=== PATIENT | male | born 1975 | race African-American/Black ===

== ENCOUNTER 2019-10-20 16:27 | Emergency (ER) | payer OTHER ==
[~2019-10-20] VITALS: Ht 175.3 cm; Wt 86.2 kg
[2019-10-20 19:08] LABS: Basophils # (auto) 0 uL; Basophils % (auto) 0.2 % (0.0-2.0); Eosinophils # (auto) 0 uL; Eosinophils % (auto) 0.1 % (0.0-7.0); Hematocrit 48.7 % (41.0-53.0); Hemoglobin 16.5 g/dL (13.5-17.5); Lymphocytes # (auto) 3.1 uL; Lymphocytes % (auto) 27.5 % (10.0-50.0); Mean Corpuscular Hemoglobin 30.6 pg (28.0-32.0); Mean Corpuscular Hgb Conc. 33.9 g/dL (32.0-36.0); Mean Corpuscular Volume 90.2 fL (80.0-100.0); Monocytes # (auto) 0.9 uL; Monocytes % (auto) 7.7 % (0.0-12.0); Neutrophils # (auto) 7.3 uL; Neutrophils % (auto) 64.5 % (37.0-80.0); Nucleated Red Blood Cells % 0.1 %; Platelet Count (auto) 281 10^3/uL (140-450); Red Cell Distribution Width 14.5 % (11.8-14.3); White Blood Cell 11.3 10^3/uL (4.4-10.8)
[2019-10-20 19:27] LABS: Albumin 3.9 g/dL (3.4-5.0); BUN/Creatinine Ratio 20.8; Calcium 9.5 mg/dL (8.5-10.1); Potassium 3.4 mmol/L (3.5-5.1)
[2019-10-20 19:31] LABS: Bilirubin, Total 1.5 mg/dL (0.2-1.0); Total Protein 8.2 g/dL (6.4-8.2)
[2019-10-20] MEDS ORDERED: IOHEXOL 300 MG/ML 100ML BOTTLE IJ ONE (20:13)
[2019-10-20] MEDS ORDERED: KETOROLAC TROMETH 30 MG/ML 1ML VIAL IV ONE (20:45)
[2019-10-20] MEDS ORDERED: ONDANSETRON HCL 4 MG/2 ML VIAL IM ONE (20:45)
[2019-10-20 21:54] VITALS: BP 146/86
[2019-10-20 22:52] LABS: Urine Blood Negative /uL (Negative)
[2019-10-20 22:54] LABS: Urine Bacteria NONE SEEN /hpf (None Seen)
[2019-10-20 22:55] LABS: Urine WBC None seen /hpf (0 - 3)
== END 2019-10-20 23:03 ==
LOC: EDBD 16:27 → ER 16:42 → EEVIPCON 16:42 → ER 23:03
DX: R10.84 Generalized abdominal pain (principal)
CPT/HCPCS: 36415; 74177; 80053; 81001; 82150; 83605; 83690; 85025; 96372; 96374; 99284; J1885; J2405; Q9967

== ENCOUNTER 2019-12-15 15:05 | Inpatient (IN) | payer OTHER ==
[~2019-12-15] VITALS: Ht 167.6 cm; Wt 96.0 kg
[2019-12-15] MEDS ORDERED: SODIUM CHLORIDE 0.9% 1,000 ML IV ONE (15:19)
[2019-12-15] MEDS ORDERED: SODIUM CHLORIDE 0.9% 1,000 ML IVB ONE (15:19)
[2019-12-15] MEDS ORDERED: MORPHINE SULFATE 4 MG/ML SYR/VIAL IV ONE (15:30)
[2019-12-15] MEDS ORDERED: ONDANSETRON HCL 4 MG/2 ML VIAL IV ONE (15:30)
[2019-12-15 16:00] LABS: Basophils # (auto) 0.1 10 ^3/uL (0-0.2); Basophils % (auto) 0.5 % (0.0-2.0); Eosinophils # (auto) 0 10 ^3/uL (0-0.8); Hematocrit 45.6 % (41.0-53.0); Hemoglobin 15.2 g/dL (13.5-17.5); Lymphocytes # (auto) 1.3 10 ^3/uL (0.4-5.4); Lymphocytes % (auto) 10.8 % (10.0-50.0); Mean Corpuscular Hemoglobin 31.2 pg (28.0-32.0); Mean Corpuscular Hgb Conc. 33.4 g/dL (32.0-36.0); Mean Corpuscular Volume 93.3 fL (80.0-100.0); Monocytes # (auto) 0.5 10 ^3/uL (0-1.3); Neutrophils # (auto) 9.9 10 ^3/uL (1.6-8.6); Neutrophils % (auto) 84.7 % (37.0-80.0); Platelet Count (auto) 246 10^3/uL (140-450); Red Blood Cells 4.89 10^6/uL (4.5-5.90); Red Cell Distribution Width 15.5 % (11.8-14.3); White Blood Cell 11.6 10^3/uL (4.4-10.8)
[2019-12-15 16:15] LABS: INR 1.04 (0.9-1.15); Partial Thromboplastin Time 24.9 sec (23.64-32.05)
[2019-12-15 16:17] LABS: Albumin 4.3 g/dL (3.4-5.0); Calcium 9.7 mg/dL (8.5-10.1); Potassium 3.9 mmol/L (3.5-5.1)
[2019-12-15 16:23] LABS: BUN/Creatinine Ratio 8.2; Bilirubin, Total 0.7 mg/dL (0.2-1.0); Total Protein 8.5 g/dL (6.4-8.2)
[2019-12-15 16:29] LABS: Lactic Acid w/Reflex 3.2 mmol/L (0.4-2.0)
[2019-12-15] MEDS ORDERED: PIPERACILLIN-TAZOB 3.375GM 100 ML IV ONE (17:00)
[2019-12-15] MEDS: D5W/SOD CHL 0.45%/KCL 20MEQ 1,000 ML IV SCH (18:30)
[2019-12-15 19:21] LABS: Urine Bacteria NONE SEEN /hpf (None Seen); Urine Blood Negative /uL (Negative); Urine Mucus FEW (None Seen); Urine Specific Gravity 1.034 (1.001-1.035); Urine WBC 2 /hpf (0 - 3)
[2019-12-15] MEDS: MORPHINE SULFATE 4 MG/ML SYR/VIAL IV PRN (20:03)
[2019-12-15 20:30] VITALS: BP 136/93
--- NOTE | 2019-12-15 20:30 | NUR ---
MS admit from [facility] admitted to tele/MS. Patient oriented to Josie Myles, primary RN, unit, room, bed, and unit policies regarding patient care and visiting hours. Patient weighed by bed scale and encouraged to call if they need something. All questions and concerns addressed, patient verbalized understanding.
[2019-12-15 22:00] VITALS: BP 136/93
[2019-12-16] MEDS: D5W/SOD CHL 0.45%/KCL 20MEQ 1,000 ML IV SCH ×4 (02:23→21:12)
[2019-12-16] MEDS: MORPHINE SULFATE 4 MG/ML SYR/VIAL IV PRN ×3 (02:32→21:39)
--- NOTE | 2019-12-16 02:32 | NUR ---
PAIN PATIENT C/O 8/10 PAIN IN THE ABDOMEN. 4MG MORPHINE GIVEN PER ORDERS. WILL CONTINUE TO MONITOR.
[2019-12-16 05:00] VITALS: BP 123/80
--- NOTE | 2019-12-16 07:21 | NUR ---
OPENING SHIFT NOTE Assumed care of patient from retail shift leader RN. Guards at bedside. Cuffs on right wrist and bilateral lower extremities, no circulatory issues or skin breakdown noted. Patient is asleep, no signs of distress noted. Bed is locked, in the lowest position, side rails up x2, and call light is in reach.
--- NOTE | 2019-12-16 08:16 | NUR ---
PAIN Patient complaining of pain "8/10" in abdomen. Pain medication administered as ordered.
[2019-12-16 09:00] VITALS: BP 117/71
--- NOTE | 2019-12-16 09:00 | NUR ---
PAIN REASSESSMENT Patient reports abdominal pain "4/10". Patient refused ice/heat packs, will continue to monitor.
[2019-12-16] MEDS: ENOXAPARIN SOD 40 MG/0.4 ML SYRINGE SC SCH (09:35)
[2019-12-16] MEDS: PANTOPRAZOLE 40 MG/10 ML VIAL INJ IV SCH (09:35)
[2019-12-16 13:00] VITALS: BP 109/69
[2019-12-16] MEDS: HYDROcodone-ACET 10/325MG TAB PO PRN ×2 (14:56→19:48)
--- NOTE | 2019-12-16 14:56 | NUR ---
PAIN Patient complaining of abdominal pain "05/17". No medication available for severe pain, patient offered medication for mild pain, will be given as ordered.
--- NOTE | 2019-12-16 16:00 | NUR ---
PAIN REASSESSMENT Patient pain level is 6/10, stating no relief with medication, patient offered heat pack, will reassess.
[2019-12-16 17:00] VITALS: BP 125/73
--- NOTE | 2019-12-16 17:10 | NUR ---
PAGEBenji PEREZ regarding pain management. Patient stated the [place] did not help his pain, awaiting call back.
--- NOTE | 2019-12-16 17:12 | NUR ---
PAIN Patient complaining of abdominal pain "04/16". no pain medication due, Patient requested another heat pack.
--- NOTE | 2019-12-16 18:31 | NUR ---
CALL FROM ANA updated on patient pain status, no new orders received.
--- NOTE | 2019-12-16 18:58 | NUR ---
Closing shift notes Care endorsed to shift production supervisor RN.
--- NOTE | 2019-12-16 19:05 | NUR ---
Opening Shift Note Assumed care of patient, awake and alert. No S/S of distress/SOB, patient does state 9/10 pain. POC discussed and questions answered. Bed is locked in lowest position with side rails up x2 for safety, call light is within reach and patient encouraged to call for assistance as needed. Will medicate for pain at this time and continue to monitor for changes Q1hr and PRN.
--- NOTE | 2019-12-16 19:40 | NUR ---
PAIN PATIENT COMPLAINS 9/10 PAIN IN THE ABDOMEN. NORCO 10 IS ORDERED, WILL GIVE AT THIS TIME. WILL CONTINUE TO MONITOR.
--- NOTE | 2019-12-16 21:05 | NUR ---
PAIN REASSESSMENT PATIENT STATES 9/10 PAIN IN THE ABDOMEN. HEATING PACK GIVEN. WILL CONTINUE TO MONITOR.
--- NOTE | 2019-12-16 21:16 | NUR ---
PAGE SENT FOR DR PEREZ REGARDING PATIENTS PAIN. PATIENT STATES 9/10 PAIN AND IS SHAKING IN BED. NORCO 10 AND HOT PACKS GIVEN. NEITHER IS HELPING TO ALLEVIATE THE PAIN AT THIS TIME. WILL AWAIT CALL BACK.
--- NOTE | 2019-12-16 21:21 | NUR ---
PAGE RETURNED NEW ORDERS RECEIVED, WILL CARRY OUT ORDERS.
--- NOTE | 2019-12-16 21:40 | NUR ---
PAIN NEW ORDERS FOR MORPHINE 4MG Q4 PRN GIVEN TO PATIENT WITH COMPLAINT OF 9/10 PAIN. WILL CONTINUE TO MONITOR.
--- NOTE | 2019-12-16 22:15 | NUR ---
PAIN REASSESSMENT PATIENT STATES PAIN HAS DECREASED TO 5/10 AND IS MORE COMFORTABLE. WILL CONTINUE TO MONITOR.
[2019-12-17] MEDS: MORPHINE SULFATE 4 MG/ML SYR/VIAL IV PRN ×5 (02:01→21:04)
--- NOTE | 2019-12-17 02:01 | NUR ---
PAIN PATIENT HAS 8/10 PAIN IN ABDOMEN. MORPHINE GIVEN AT THIS TIME. WILL CONTINUE TO MONITOR
--- NOTE | 2019-12-17 02:47 | NUR ---
PAIN REASSESSMENT PATIENT STATES 5/10 PAIN.
[2019-12-17] MEDS: D5W/SOD CHL 0.45%/KCL 20MEQ 1,000 ML IV SCH ×4 (04:24→23:03)
[2019-12-17 05:58] VITALS: BP 137/88
--- NOTE | 2019-12-17 06:13 | NUR ---
PAIN PATIENT STATES 7/10 PAIN. WILL GIVE MORPHINE AND HOT PACK AT THIS TIME.
--- NOTE | 2019-12-17 06:56 | NUR ---
PAIN REASSESSMENT PATIENT STATES PAIN IS STILL AT A 7/10 BUT THE PAIN IS STARTING TO GO DOWN.
[2019-12-17 06:57] LABS: Basophils # (auto) 0 10 ^3/uL (0-0.2); Basophils % (auto) 0.4 % (0.0-2.0); Eosinophils # (auto) 0 10 ^3/uL (0-0.8); Eosinophils % (auto) 0.9 % (0.0-7.0); Hematocrit 38.8 % (41.0-53.0); Lymphocytes # (auto) 2.8 10 ^3/uL (0.4-5.4); Mean Corpuscular Hemoglobin 31.7 pg (28.0-32.0); Mean Corpuscular Hgb Conc. 33.5 g/dL (32.0-36.0); Mean Corpuscular Volume 94.8 fL (80.0-100.0); Monocytes # (auto) 0.3 10 ^3/uL (0-1.3); Monocytes % (auto) 6.2 % (0.0-12.0); Neutrophils # (auto) 2.2 10 ^3/uL (1.6-8.6); Neutrophils % (auto) 40.5 % (37.0-80.0); Nucleated Red Blood Cells % 0.1 %; Platelet Count (auto) 189 10^3/uL (140-450); Red Blood Cells 4.09 10^6/uL (4.5-5.90); Red Cell Distribution Width 14.9 % (11.8-14.3); White Blood Cell 5.5 10^3/uL (4.4-10.8)
[2019-12-17 07:15] LABS: Albumin 3.2 g/dL (3.4-5.0); Calcium 8.6 mg/dL (8.5-10.1); Potassium 4.1 mmol/L (3.5-5.1)
[2019-12-17 07:19] LABS: Bilirubin, Total 0.7 mg/dL (0.2-1.0); Total Protein 6.4 g/dL (6.4-8.2)
--- NOTE | 2019-12-17 08:00 | NUR ---
ASSESSMENT NOTE PT IS ALERT ORIENTED X4, RESTING IN BED COMFORTABLY, NO DISTRESS NOTED, ABLE TO SELF REPOSITION AND VERBALIS HIS DEMANDS, ABDOMEN PAIN 4/10 AT THIS TIME, ON PAIN MANAGEMENT AT ALL TIMES, CALL LIGHT WITHIN REACH PT HAS LEFT HAND WITH A METAL CUFF, CHECKED FOR CIRCULATIONS AT ALL TIMES, GUARDS AT BED SIDE
[2019-12-17 09:00] VITALS: BP 150/73
--- NOTE | 2019-12-17 09:00 | NUR ---
RADIOLOGY GARCIA CALLED, CONFIRM PT IS NPO GOR UPPER GI SERIES
[2019-12-17] MEDS: ENOXAPARIN SOD 40 MG/0.4 ML SYRINGE SC SCH (09:23)
[2019-12-17] MEDS: PANTOPRAZOLE 40 MG/10 ML VIAL INJ IV SCH (09:23)
[2019-12-17] MEDS ORDERED: EZ PAQUE SUSP 12OZ BTL ONE (09:34)
[2019-12-17] MEDS ORDERED: EZ-GAS II GRANULES (RADIOLOGY USE) PO ONE (09:34)
[2019-12-17] MEDS ORDERED: BARIUM SULFATE 98% 340 GM PWDR ONE (09:34)
--- NOTE | 2019-12-17 10:40 | NUR ---
OUT VIA WHEELCHAIR FOR UPPER GI SERIES, GUARDS AT BED SIDE
--- NOTE | 2019-12-17 11:40 | NUR ---
PT IS BACK TO HIS ROOM, NO DISTRESS NOTED, GUARDS AT HIS SIDE
[2019-12-17 13:00] VITALS: BP 135/77
--- NOTE | 2019-12-17 13:41 | NUR ---
DR PEREZ IS HERE FOLLOWING UP ON PT
[2019-12-17] MEDS: ONDANSETRON HCL 4 MG/2 ML VIAL IV PRN (16:15)
[2019-12-17 17:00] VITALS: BP 136/70
--- NOTE | 2019-12-17 18:43 | NUR ---
PT CONTINUE STABLE, CONTINUE MONITORING
--- NOTE | 2019-12-17 19:20 | NUR ---
Opening Shift Note Assumed care of patient, awake and alert. No S/S of distress/SOB. Patient states 8/10 pain.POC discussed and questions answered, bed is locked in lowest position with side rails up x2, call light is within reach and encouraged to call for assistance PRN, will continue to monitor for changes Q1hr and PRN.
[2019-12-17 21:37] VITALS: BP 110/58
[2019-12-18] MEDS: MORPHINE SULFATE 4 MG/ML SYR/VIAL IV PRN ×3 (02:22→11:59)
[2019-12-18] MEDS: ONDANSETRON HCL 4 MG/2 ML VIAL IV PRN ×2 (02:22→06:41)
[2019-12-18 04:36] VITALS: BP 107/59
[2019-12-18] MEDS: D5W/SOD CHL 0.45%/KCL 20MEQ 1,000 ML IV SCH ×2 (06:29→12:55)
[2019-12-18 09:00] VITALS: BP 111/59
--- NOTE | 2019-12-18 09:00 | NUR ---
BREAKFAST PT TOLERATING DIET WELL, NO DISTRESS NOTED
[2019-12-18] MEDS: PANTOPRAZOLE 40 MG/10 ML VIAL INJ IV SCH (09:55)
[2019-12-18] MEDS: ENOXAPARIN SOD 40 MG/0.4 ML SYRINGE SC SCH (09:55)
[2019-12-18 13:00] VITALS: BP 116/60
--- NOTE | 2019-12-18 13:00 | NUR ---
LUNCH PT TOLERATED WELL
[2019-12-18] MEDS ORDERED: OMEP20TA PO (13:45)
--- NOTE | 2019-12-18 15:13 | NUR ---
ALL DISCHARGE INSTRUCTION GIVEN TO PT, VERBALIS UNDERSTANDING, PATIENT'S GUARDS AWARE AT BED SIDE AWARE
--- NOTE | 2019-12-18 16:44 | NUR ---
Discharge instructions given as ordered. Encourage to follow up with PMD as instructed. All questions and concerns addressed. Patient verbalized understanding. Medication reconciliation form completed and copy given to patient.IV removed with catheter intact, pressure dressing applied. Patient ambulated with all personal belongings, accompanied by his guards. No distress noted at time of departure.
== END 2019-12-18 16:55 | DRG 392 ==
LOC: ER 15:05 → EEVIPCON 15:05 → OVERFLOW 15:06 → EAST 20:16
PROVIDERS: ADMIT Internal Medicine; ATTEND Internal Medicine
DX: K52.9 Noninfective gastroenteritis and colitis, unspecified (principal); K21.9 Gastro-esophageal reflux disease without esophagitis
CPT/HCPCS: 36415; 74176; 74245; 76705; 80053; 81001; 82150; 83605; 83690; 84484; 85025; 85610; 85730; 87040; 96361; 96365; 96372; 96375; C9113; G0378; J2405; J2543

== ENCOUNTER 2020-03-01 02:18 | Emergency (ER) | payer OTHER ==
[~2020-03-01] VITALS: Ht 172.7 cm; Wt 90.7 kg
[~2020-03-01 02:18] MED LIST: OMEP20TA PO
[2020-03-01] MEDS ORDERED: ONDANSETRON HCL 4 MG/2 ML VIAL IV ONE (02:45)
[2020-03-01] MEDS ORDERED: MORPHINE SULFATE 4 MG/ML SYR/VIAL IV ONE (02:45)
[2020-03-01] MEDS ORDERED: SODIUM CHLORIDE 0.9% 1,000 ML IV ONE (02:45)
[2020-03-01 02:47] LABS: Basophils # (auto) 0.1 10 ^3/uL (0-0.2); Basophils % (auto) 0.5 % (0.0-2.0); Eosinophils # (auto) 0 10 ^3/uL (0-0.8); Hematocrit 43.4 % (41.0-53.0); Hemoglobin 14.5 g/dL (13.5-17.5); Lymphocytes # (auto) 1.5 10 ^3/uL (0.4-5.4); Lymphocytes % (auto) 12.9 % (10.0-50.0); Mean Corpuscular Hemoglobin 30.8 pg (28.0-32.0); Mean Corpuscular Hgb Conc. 33.4 g/dL (32.0-36.0); Mean Corpuscular Volume 92.2 fL (80.0-100.0); Monocytes # (auto) 0.5 10 ^3/uL (0-1.3); Monocytes % (auto) 4.4 % (0.0-12.0); Neutrophils # (auto) 9.5 10 ^3/uL (1.6-8.6); Neutrophils % (auto) 82.2 % (37.0-80.0); Platelet Count (auto) 297 10^3/uL (140-450); Red Blood Cells 4.71 10^6/uL (4.5-5.90); Red Cell Distribution Width 14.1 % (11.8-14.3); White Blood Cell 11.5 10^3/uL (4.4-10.8)
[2020-03-01 03:02] LABS: Albumin 4.3 g/dL (3.4-5.0); BUN/Creatinine Ratio 13.9; Calcium 9.3 mg/dL (8.5-10.1); Magnesium 2.1 mg/dL (1.6-2.6); Potassium 3.6 mmol/L (3.5-5.1)
[2020-03-01 03:05] LABS: Bilirubin, Total 0.6 mg/dL (0.2-1.0); Total Protein 8.5 g/dL (6.4-8.2)
[2020-03-01 04:08] LABS: Urine Bacteria FEW /hpf (None Seen); Urine Blood Negative /uL (Negative); Urine Mucus FEW (None Seen); Urine Specific Gravity 1.042 (1.001-1.035); Urine Sperm PRESENT /hpf (None Seen); Urine WBC 2 /hpf (0 - 3)
[2020-03-01] MEDS ORDERED: metroNIDAZOLE 500 MG TAB PO ONE (04:30)
[2020-03-01] MEDS ORDERED: HYDROmorphone HCL 2 MG/ML VL IV ONE (04:30)
[2020-03-01 04:55] VITALS: BP 118/65
== END 2020-03-01 02:40 | disposition home or self-care (01) ==
LOC: EDBD 02:18 → EDUNIT# 02:18 → EEVIPCON 02:20 → ER 02:20
DX: K52.9 Noninfective gastroenteritis and colitis, unspecified (principal); K40.20 Bilateral inguinal hernia, without obstruction or gangrene, not specified as recurrent; K44.9 Diaphragmatic hernia without obstruction or gangrene; Z79.899 Other long term (current) drug therapy
CPT/HCPCS: 36415; 74176; 80053; 81001; 82150; 83690; 83735; 85025; 96361; 96374; 96375; 99284; J1170; J2270; J2405; J7030

== ENCOUNTER 2020-03-04 15:17 | Inpatient (IN) | payer OTHER ==
[~2020-03-04] VITALS: Ht 172.7 cm; Wt 98.8 kg
[2020-03-04] MEDS ORDERED: SODIUM CHLORIDE 0.9% 1,000 ML IVB ONE (15:24)
[2020-03-04 16:13] LABS: Albumin 3.9 g/dL (3.4-5.0); BUN/Creatinine Ratio 11.5; Potassium 3.6 mmol/L (3.5-5.1)
[2020-03-04 16:16] LABS: Bilirubin, Total 0.5 mg/dL (0.2-1.0); Total Protein 7.9 g/dL (6.4-8.2)
[2020-03-04 16:22] LABS: Basophils # (auto) 0 10 ^3/uL (0-0.2); Basophils % (auto) 0.3 % (0.0-2.0); Eosinophils # (auto) 0 10 ^3/uL (0-0.8); Eosinophils % (auto) 0.5 % (0.0-7.0); Hematocrit 43.1 % (41.0-53.0); Hemoglobin 14.4 g/dL (13.5-17.5); Lymphocytes # (auto) 3.4 10 ^3/uL (0.4-5.4); Lymphocytes % (auto) 39.9 % (10.0-50.0); Mean Corpuscular Hemoglobin 30.9 pg (28.0-32.0); Mean Corpuscular Hgb Conc. 33.3 g/dL (32.0-36.0); Mean Corpuscular Volume 92.6 fL (80.0-100.0); Monocytes # (auto) 0.5 10 ^3/uL (0-1.3); Monocytes % (auto) 6.1 % (0.0-12.0); Neutrophils # (auto) 4.5 10 ^3/uL (1.6-8.6); Neutrophils % (auto) 53.2 % (37.0-80.0); Nucleated Red Blood Cells % 0.2 %; Platelet Count (auto) 273 10^3/uL (140-450); Red Blood Cells 4.65 10^6/uL (4.5-5.90); Red Cell Distribution Width 13.8 % (11.8-14.3); White Blood Cell 8.5 10^3/uL (4.4-10.8)
[2020-03-04] MEDS ORDERED: MORPHINE SULF INJ 2 MG/ML SYRINGE 1ML IV PRN (16:30)
[2020-03-04] MEDS ORDERED: NITROGLYCERIN 0.4 MG SL TAB SL PRN (16:30)
[2020-03-04] MEDS: D5W/SOD CHL 0.45% 1,000 ML IV SCH ×2 (17:15→23:10)
[2020-03-04] MEDS: HYDROcodone-ACET 10/325MG TAB PO PRN (17:29)
[2020-03-04] MEDS: PIPERACILLIN-TAZOB 3.375GM 100 ML IV SCH (18:15)
[2020-03-04] MEDS: ONDANSETRON HCL 4 MG/2 ML VIAL IV PRN (18:48)
[2020-03-04 19:30] VITALS: BP 130/73
[2020-03-04 22:00] VITALS: BP 130/73
[2020-03-05] MEDS: HYDROcodone-ACET 10/325MG TAB PO PRN (00:43)
[2020-03-05] MEDS: PIPERACILLIN-TAZOB 3.375GM 100 ML IV SCH ×5 (00:43→23:09)
[2020-03-05] MEDS: ONDANSETRON HCL 4 MG/2 ML VIAL IV PRN ×4 (01:00→23:10)
[2020-03-05 05:00] VITALS: BP 136/78
[2020-03-05] MEDS: D5W/SOD CHL 0.45% 1,000 ML IV SCH ×3 (05:50→18:14)
[2020-03-05 09:00] VITALS: BP 139/98
[2020-03-05 13:00] VITALS: BP 138/84
[2020-03-05 17:00] VITALS: BP 149/85
[2020-03-05] MEDS: MORPHINE SULF INJ 2 MG/ML SYRINGE 1ML IV PRN ×2 (18:56→23:10)
[2020-03-05] MEDS: PANTOPRAZOLE 40 MG/10 ML VIAL INJ IV SCH (21:39)
[2020-03-05 22:00] VITALS: BP 125/72
[2020-03-06] MEDS: D5W/SOD CHL 0.45% 1,000 ML IV SCH ×4 (01:50→22:27)
[2020-03-06] MEDS: MORPHINE SULF INJ 2 MG/ML SYRINGE 1ML IV PRN ×3 (03:03→10:30)
[2020-03-06] MEDS: ONDANSETRON HCL 4 MG/2 ML VIAL IV PRN ×5 (03:03→20:47)
[2020-03-06 05:00] VITALS: BP 103/65
[2020-03-06] MEDS: PIPERACILLIN-TAZOB 3.375GM 100 ML IV SCH ×4 (05:47→23:58)
[2020-03-06] MEDS: PANTOPRAZOLE 40 MG/10 ML VIAL INJ IV SCH ×2 (09:50→22:26)
[2020-03-06 13:00] VITALS: BP 113/77
[2020-03-06] MEDS ORDERED: ALUM & MAG HYDROX-SIMETH LIQ(MAALOX) 30 ML PO PRN (14:45)
[2020-03-06] MEDS: HYDROcodone-ACET 10/325MG TAB PO PRN (16:20)
[2020-03-06 17:00] VITALS: BP 105/66
[2020-03-06 21:45] VITALS: BP 129/76
[2020-03-07 04:52] VITALS: BP 115/67
[2020-03-07] MEDS: PIPERACILLIN-TAZOB 3.375GM 100 ML IV SCH ×3 (06:18→17:42)
[2020-03-07 09:00] VITALS: BP 129/70
[2020-03-07] MEDS: ONDANSETRON HCL 4 MG/2 ML VIAL IV PRN ×2 (09:15→21:49)
[2020-03-07] MEDS: PANTOPRAZOLE 40 MG/10 ML VIAL INJ IV SCH ×2 (10:15→21:48)
[2020-03-07] MEDS: D5W/SOD CHL 0.45% 1,000 ML IV SCH ×2 (11:29→17:42)
[2020-03-07 14:30] VITALS: BP 132/80
[2020-03-07 16:28] VITALS: BP 112/69
[2020-03-07] MEDS: HYDROcodone-ACET 10/325MG TAB PO PRN (21:49)
[2020-03-07 21:52] VITALS: BP 121/79
[2020-03-08] MEDS: PIPERACILLIN-TAZOB 3.375GM 100 ML IV SCH ×4 (00:18→17:38)
[2020-03-08] MEDS: D5W/SOD CHL 0.45% 1,000 ML IV SCH ×4 (04:45→20:30)
[2020-03-08 04:52] VITALS: BP 118/73
[2020-03-08 09:00] VITALS: BP 128/80
[2020-03-08] MEDS: PANTOPRAZOLE 40 MG/10 ML VIAL INJ IV SCH ×2 (10:32→22:07)
[2020-03-08] MEDS ORDERED: BARIUM SULFATE 98% 340 GM PWDR ONE ×2 (10:37)
[2020-03-08] MEDS ORDERED: EZ-GAS II GRANULES (RADIOLOGY USE) PO ONE (10:39)
[2020-03-08] MEDS: HYDROcodone-ACET 10/325MG TAB PO PRN (12:31)
[2020-03-08] MEDS: ONDANSETRON HCL 4 MG/2 ML VIAL IV PRN ×3 (12:31→21:24)
[2020-03-08 13:00] VITALS: BP 132/87
[2020-03-08 17:00] VITALS: BP 135/75
[2020-03-08] MEDS: traMADol HCL 50 MG TAB PO PRN ×2 (17:28→21:23)
[2020-03-08 21:53] VITALS: BP 111/55
[2020-03-09] MEDS: D5W/SOD CHL 0.45% 1,000 ML IV SCH ×4 (03:10→22:12)
[2020-03-09 05:00] VITALS: BP 116/77
[2020-03-09] MEDS: PIPERACILLIN-TAZOB 3.375GM 100 ML IV SCH ×5 (06:00→23:50)
[2020-03-09] MEDS: traMADol HCL 50 MG TAB PO PRN ×3 (07:40→22:19)
[2020-03-09] MEDS: ONDANSETRON HCL 4 MG/2 ML VIAL IV PRN ×3 (07:40→22:19)
[2020-03-09 09:00] VITALS: BP 130/72
[2020-03-09] MEDS: PANTOPRAZOLE 40 MG/10 ML VIAL INJ IV SCH ×2 (11:05→22:12)
[2020-03-09 13:00] VITALS: BP 127/82
[2020-03-09 22:00] VITALS: BP 122/68
[2020-03-10 05:00] VITALS: BP 112/54
[2020-03-10] MEDS: D5W/SOD CHL 0.45% 1,000 ML IV SCH ×3 (05:12→19:10)
[2020-03-10] MEDS: PIPERACILLIN-TAZOB 3.375GM 100 ML IV SCH ×3 (06:01→17:22)
[2020-03-10] MEDS ORDERED: IOHEXOL 300 MG/ML 100ML BOTTLE IJ ONE (08:02)
[2020-03-10 08:53] VITALS: BP 122/62
[2020-03-10] MEDS: PANTOPRAZOLE 40 MG/10 ML VIAL INJ IV SCH ×2 (11:12→21:08)
[2020-03-10 13:00] VITALS: BP 113/87
[2020-03-10 16:52] VITALS: BP 131/72
[2020-03-10] MEDS: traMADol HCL 50 MG TAB PO PRN (17:23)
[2020-03-10] MEDS: ONDANSETRON HCL 4 MG/2 ML VIAL IV PRN ×2 (17:27→21:07)
[2020-03-10] MEDS: HYDROcodone-ACET 10/325MG TAB PO PRN (21:07)
[2020-03-10 22:24] VITALS: BP 130/62
[2020-03-11] MEDS: PIPERACILLIN-TAZOB 3.375GM 100 ML IV SCH ×4 (00:04→18:16)
[2020-03-11] MEDS: D5W/SOD CHL 0.45% 1,000 ML IV SCH ×4 (00:04→22:16)
[2020-03-11] MEDS: ONDANSETRON HCL 4 MG/2 ML VIAL IV PRN ×4 (02:58→22:00)
[2020-03-11] MEDS: HYDROcodone-ACET 10/325MG TAB PO PRN ×3 (02:58→22:51)
[2020-03-11 05:10] VITALS: BP 123/79
[2020-03-11 07:08] LABS: Basophils # (auto) 0 10 ^3/uL (0-0.2); Basophils % (auto) 0.4 % (0.0-2.0); Eosinophils # (auto) 0.2 10 ^3/uL (0-0.8); Eosinophils % (auto) 2.5 % (0.0-7.0); Hemoglobin 13.2 g/dL (13.5-17.5); Lymphocytes # (auto) 2.2 10 ^3/uL (0.4-5.4); Lymphocytes % (auto) 35.6 % (10.0-50.0); Mean Corpuscular Hemoglobin 30.6 pg (28.0-32.0); Mean Corpuscular Hgb Conc. 33.1 g/dL (32.0-36.0); Mean Corpuscular Volume 92.6 fL (80.0-100.0); Monocytes # (auto) 0.4 10 ^3/uL (0-1.3); Monocytes % (auto) 6.5 % (0.0-12.0); Neutrophils # (auto) 3.3 10 ^3/uL (1.6-8.6); Platelet Count (auto) 236 10^3/uL (140-450); Red Blood Cells 4.32 10^6/uL (4.5-5.90); Red Cell Distribution Width 13.7 % (11.8-14.3)
[2020-03-11 07:30] LABS: Calcium 8.4 mg/dL (8.5-10.1); Potassium 3.7 mmol/L (3.5-5.1)
[2020-03-11] MEDS: PANTOPRAZOLE 40 MG/10 ML VIAL INJ IV SCH ×2 (09:27→21:59)
[2020-03-11] MEDS: traMADol HCL 50 MG TAB PO PRN (09:28)
[2020-03-11 13:00] VITALS: BP 130/72
[2020-03-11 17:00] VITALS: BP 133/83
[2020-03-11 21:54] VITALS: BP 116/74
[2020-03-12] MEDS: PIPERACILLIN-TAZOB 3.375GM 100 ML IV SCH ×4 (00:25→17:35)
[2020-03-12] MEDS: ONDANSETRON HCL 4 MG/2 ML VIAL IV PRN ×4 (04:40→17:37)
[2020-03-12] MEDS: HYDROcodone-ACET 10/325MG TAB PO PRN ×4 (04:40→17:38)
[2020-03-12 04:56] VITALS: BP 121/73
[2020-03-12] MEDS: D5W/SOD CHL 0.45% 1,000 ML IV SCH ×3 (06:18→17:35)
[2020-03-12] MEDS ORDERED: IOHEXOL 300 MG/ML 100ML BOTTLE IJ ONE (08:50)
[2020-03-12 09:00] VITALS: BP 120/68
[2020-03-12] MEDS: PANTOPRAZOLE 40 MG/10 ML VIAL INJ IV SCH (09:05)
[2020-03-12 13:00] VITALS: BP 121/72
[2020-03-12] MEDS ORDERED: LACTULOSE 20Gm/30ML SOLN PO SCH (16:15)
[2020-03-12 16:39] VITALS: BP 127/76
[2020-03-12] MEDS ORDERED: LACT10SO3 PO (17:02)
== END 2020-03-12 18:37 | DRG 392 ==
LOC: EEVIPCON 15:17 → ER 15:17 → OVERFLOW 15:18 → WEST WING 19:21
PROVIDERS: ADMIT Internal Medicine; ATTEND Internal Medicine
DX: K29.70 Gastritis, unspecified, without bleeding (principal); K59.00 Constipation, unspecified; E86.0 Dehydration
CPT/HCPCS: 36415; 74018; 74177; 74245; 76705; 80048; 80053; 83605; 83690; 85025; 87040; 96361; 96374; C9113; G0378; J2405; J2543

== ENCOUNTER 2020-11-01 10:56 | Inpatient (IN) | payer OTHER ==
[~2020-11-01] VITALS: Ht 167.6 cm; Wt 204.1 kg
[~2020-11-01 10:56] MED LIST changes: +LACT10SO3 PO
[2020-11-01] MEDS ORDERED: SODIUM CHLORIDE 0.9% 500 ML IVB ONE (11:15)
[2020-11-01] MEDS ORDERED: MORPHINE SULFATE 4 MG/ML SYR/VIAL IV ONE ×2 (11:15→14:30)
[2020-11-01] MEDS ORDERED: ONDANSETRON HCL 4 MG/2 ML VIAL IV ONE ×2 (11:15→14:30)
[2020-11-01 12:08] LABS: Basophils # (auto) 0 10 ^3/uL (0-0.2); Basophils % (auto) 0.4 % (0.0-2.0); Eosinophils # (auto) 0 10 ^3/uL (0-0.8); Hematocrit 39.8 % (41.0-53.0); Hemoglobin 13.4 g/dL (13.5-17.5); Lymphocytes # (auto) 0.9 10 ^3/uL (0.4-5.4); Lymphocytes % (auto) 8.6 % (10.0-50.0); Mean Corpuscular Hemoglobin 30.6 pg (28.0-32.0); Mean Corpuscular Hgb Conc. 33.6 g/dL (32.0-36.0); Monocytes # (auto) 0.4 10 ^3/uL (0-1.3); Monocytes % (auto) 4.3 % (0.0-12.0); Neutrophils # (auto) 8.7 10 ^3/uL (1.6-8.6); Neutrophils % (auto) 86.7 % (37.0-80.0); Platelet Count (auto) 234 10^3/uL (140-450); Red Blood Cells 4.37 10^6/uL (4.5-5.90); Red Cell Distribution Width 14.9 % (11.8-14.3)
[2020-11-01 12:28] LABS: Albumin 3.7 g/dL (3.4-5.0); Calcium 9.2 mg/dL (8.5-10.1); Potassium 4.7 mmol/L (3.5-5.1)
[2020-11-01 12:30] LABS: BUN/Creatinine Ratio 11.6; Bilirubin, Total 0.6 mg/dL (0.2-1.0); Total Protein 7.7 g/dL (6.4-8.2)
[2020-11-01 13:57] LABS: Urine Bacteria NONE SEEN /hpf (None Seen); Urine Blood Negative /uL (Negative); Urine Specific Gravity 1.026 (1.001-1.035); Urine WBC <1 /hpf (0 - 3)
[2020-11-01] MEDS ORDERED: D5W/SOD CHL 0.45%/KCL 20MEQ 1,000 ML IV ONE (15:45)
[2020-11-01] MEDS ORDERED: NITROGLYCERIN 0.4 MG SL TAB SL PRN (15:45)
[2020-11-01] MEDS ORDERED: MORPHINE SULF INJ 2 MG/ML SYRINGE 1ML IV PRN (15:45)
[2020-11-01] MEDS ORDERED: PANTOPRAZOLE 40 MG/10 ML VIAL INJ IV ONE (16:00)
[2020-11-01] MEDS: MORPHINE SULFATE 4 MG/ML SYR/VIAL IV PRN ×2 (18:33→23:17)
[2020-11-01] MEDS: ONDANSETRON HCL 4 MG/2 ML VIAL IV PRN (18:34)
[2020-11-01] MEDS: PANTOPRAZOLE 40 MG/10 ML VIAL INJ IV SCH (22:56)
[2020-11-02 04:31] VITALS: BP 131/65
[2020-11-02] MEDS ORDERED: INFLUENZA QUAD 2020-2021 0.5 ML SYRG IM ONE (05:45)
[2020-11-02 08:00] VITALS: BP 118/76
[2020-11-02 09:36] LABS: Basophils # (auto) 0.1 10 ^3/uL (0-0.2); Basophils % (auto) 0.7 % (0.0-2.0); Eosinophils # (auto) 0 10 ^3/uL (0-0.8); Eosinophils % (auto) 0.3 % (0.0-7.0); Hematocrit 41.9 % (41.0-53.0); Hemoglobin 13.7 g/dL (13.5-17.5); Lymphocytes # (auto) 2.7 10 ^3/uL (0.4-5.4); Mean Corpuscular Hemoglobin 29.9 pg (28.0-32.0); Mean Corpuscular Hgb Conc. 32.7 g/dL (32.0-36.0); Mean Corpuscular Volume 91.5 fL (80.0-100.0); Monocytes # (auto) 0.6 10 ^3/uL (0-1.3); Monocytes % (auto) 6.3 % (0.0-12.0); Neutrophils # (auto) 6.2 10 ^3/uL (1.6-8.6); Neutrophils % (auto) 64.7 % (37.0-80.0); Nucleated Red Blood Cells % 0.1 %; Platelet Count (auto) 281 10^3/uL (140-450); Red Blood Cells 4.58 10^6/uL (4.5-5.90); Red Cell Distribution Width 14.9 % (11.8-14.3); White Blood Cell 9.5 10^3/uL (4.4-10.8)
[2020-11-02 09:43] LABS: Albumin 3.4 g/dL (3.4-5.0)
[2020-11-02 09:49] LABS: BUN/Creatinine Ratio 9.9; Bilirubin, Total 0.8 mg/dL (0.2-1.0); Total Protein 6.9 g/dL (6.4-8.2)
[2020-11-02] MEDS: PANTOPRAZOLE 40 MG/10 ML VIAL INJ IV SCH ×2 (10:09→22:27)
[2020-11-02] MEDS: MORPHINE SULFATE 4 MG/ML SYR/VIAL IV PRN (10:10)
[2020-11-02] MEDS ORDERED: OMEP-434 PO (11:40)
[2020-11-02] MEDS ORDERED: OME20T PO (11:46)
[2020-11-02] MEDS ORDERED: GOLYTELY 4L KIT PO ONE (12:00)
[2020-11-02] MEDS ORDERED: GASTROGRAFIN 120 ML SOL ONE (12:11)
[2020-11-02] MEDS ORDERED: EZ-GAS II GRANULES (RADIOLOGY USE) PO ONE (12:11)
[2020-11-02] MEDS ORDERED: BARIUM SULFATE 98% 340 GM PWDR ONE (12:12)
[2020-11-02] MEDS ORDERED: READI-CAT 2 (BARIUM SULF)(VANILLA SMOOTHIE) 450ML ONE ×2 (12:13→17:08)
[2020-11-02] MEDS: ONDANSETRON HCL 4 MG/2 ML VIAL IV PRN (18:21)
[2020-11-02] MEDS: HYDROcodone-ACET 10/325MG TAB PO PRN (20:40)
[2020-11-02 22:00] VITALS: BP 114/67
[2020-11-03] MEDS: HYDROcodone-ACET 10/325MG TAB PO PRN ×3 (00:46→20:17)
[2020-11-03 05:00] VITALS: BP 116/70
[2020-11-03 08:00] VITALS: BP 130/52
[2020-11-03 08:39] LABS: Albumin 3.6 g/dL (3.4-5.0); Calcium 9.3 mg/dL (8.5-10.1); Potassium 3.9 mmol/L (3.5-5.1)
[2020-11-03] MEDS: PANTOPRAZOLE 40 MG/10 ML VIAL INJ IV SCH ×2 (10:00→21:39)
[2020-11-03] MEDS: METOCLOPRAMIDE HCL 10 MG TAB PO SCH ×2 (13:37→21:40)
[2020-11-03 16:00] VITALS: BP 130/69
[2020-11-03 22:00] VITALS: BP 134/82
[2020-11-04 05:00] VITALS: BP 133/77
[2020-11-04] MEDS: HYDROcodone-ACET 10/325MG TAB PO PRN ×2 (06:03→10:31)
[2020-11-04] MEDS: METOCLOPRAMIDE HCL 10 MG TAB PO SCH ×2 (06:04→14:06)
[2020-11-04 08:00] VITALS: BP 118/78
[2020-11-04] MEDS: PANTOPRAZOLE 40 MG/10 ML VIAL INJ IV SCH (10:01)
[2020-11-04] MEDS ORDERED: METO-517 PO (13:22)
[2020-11-04] MEDS ORDERED: LACT10SO3 PO (13:22)
[2020-11-04 16:00] VITALS: BP 149/73
== END 2020-11-04 18:00 | DRG 392 ==
LOC: EEVIPCON 10:56 → EDBD 10:56 → ER 10:56 → OVERFLOW 10:57 → WEST WING 11-02 04:31
PROVIDERS: ADMIT Internal Medicine; ATTEND Internal Medicine
DX: K21.9 Gastro-esophageal reflux disease without esophagitis (principal); K59.09 Other constipation; E86.0 Dehydration; Z80.9 Family history of malignant neoplasm, unspecified; Z83.3 Family history of diabetes mellitus; K29.70 Gastritis, unspecified, without bleeding; Z20.822 Contact with and (suspected) exposure to COVID-19
CPT/HCPCS: 36415; 74176; 74245; 76700; 80053; 81001; 82150; 83690; 85025; 87081; 87426; 93005; 96365; 96375; 96376; C9113; G0378; J2405

== ENCOUNTER 2021-04-27 13:53 | Inpatient (IN) | payer OTHER ==
[~2021-04-27] VITALS: Ht 175.3 cm; Wt 84.5 kg
[~2021-04-27 13:53] MED LIST changes: +METO-517 PO; +OME20T PO; -OMEP20TA PO
[2021-04-27 15:18] LABS: Basophils # (auto) 0 10 ^3/uL (0-0.2); Basophils % (auto) 0.1 % (0.0-2.0); Eosinophils # (auto) 0 10 ^3/uL (0-0.8); Eosinophils % (auto) 0.1 % (0.0-7.0); Hematocrit 44.5 % (41.0-53.0); Hemoglobin 15.1 g/dL (13.5-17.5); Lymphocytes # (auto) 1.1 10 ^3/uL (0.4-5.4); Lymphocytes % (auto) 10.6 % (10.0-50.0); Mean Corpuscular Hemoglobin 30.1 pg (28.0-32.0); Mean Corpuscular Hgb Conc. 33.8 g/dL (32.0-36.0); Mean Corpuscular Volume 89.1 fL (80.0-100.0); Monocytes # (auto) 0.3 10 ^3/uL (0-1.3); Monocytes % (auto) 3.5 % (0.0-12.0); Neutrophils # (auto) 8.5 10 ^3/uL (1.6-8.6); Neutrophils % (auto) 85.7 % (37.0-80.0)
[2021-04-27 15:33] LABS: Albumin 4.2 g/dL (3.4-5.0); Calcium 9.1 mg/dL (8.5-10.1); Magnesium 2.3 mg/dL (1.6-2.6); Potassium 3.6 mmol/L (3.5-5.1)
[2021-04-27 15:36] LABS: Total Protein 7.8 g/dL (6.4-8.2)
[2021-04-27] MEDS ORDERED: SODIUM CHLORIDE 0.9% 500 ML IVB ONE (15:45)
[2021-04-27] MEDS ORDERED: SODIUM CHLORIDE 0.9% 1,000 ML IV ONE (15:45)
[2021-04-27] MEDS ORDERED: METOCLOPRAMIDE HCL 5MG/ml INJ 2ml VIAL IV ONE (15:45)
[2021-04-27] MEDS ORDERED: HYDROmorphone HCL 2 MG/ML VL IV ONE (15:45)
[2021-04-27 16:52] LABS: INR 1.04 (0.9-1.15); Partial Thromboplastin Time 20.2 sec (23.0-31.2)
[2021-04-27] MEDS ORDERED: SUCRALFATE 1 GM/10 ML ORAL SUSP PO ONE (17:15)
[2021-04-27] MEDS ORDERED: PANTOPRAZOLE 40 MG/10 ML VIAL INJ IV ONE (17:15)
[2021-04-27] MEDS ORDERED: CEFTRIAXONE SODIUM 2 GM in D5W 5% 50 ML IV ONE (17:45)
[2021-04-27] MEDS ORDERED: D5W/SOD CHL 0.45%/KCL 40MEQ 1,000 ML IV ONE (17:45)
[2021-04-27] MEDS ORDERED: MORPHINE SULF INJ 2 MG/ML SYRINGE 1ML IV PRN (21:30)
[2021-04-27] MEDS ORDERED: NITROGLYCERIN 0.4 MG SL TAB SL PRN (21:30)
[2021-04-27] MEDS: PANTOPRAZOLE 40 MG/10 ML VIAL INJ IV SCH (22:21)
[2021-04-28] MEDS: MORPHINE SULFATE 4 MG/ML SYR/VIAL IV PRN ×5 (00:27→20:36)
[2021-04-28] MEDS: ONDANSETRON HCL 4 MG/2 ML VIAL IV PRN ×5 (00:28→20:37)
[2021-04-28 01:00] VITALS: BP 127/78
[2021-04-28 01:18] LABS: Alcohol, Urine < 3.0 mg/dL (0-10); Amphetamine Screen, Urine NEGATIVE (NEGATIVE); Barbiturate Scree,Urine NEGATIVE (NEGATIVE); Benzodiazephine Screen, Urine NEGATIVE (NEGATIVE); Cannabinoid Screen, Urine NEGATIVE (NEGATIVE); Cocaine Screen, Urine NEGATIVE (NEGATIVE); Opiate Scree,Urine NEGATIVE (NEGATIVE); Phencyclidine Screen, Urine NEGATIVE (NEGATIVE)
[2021-04-28 01:34] LABS: Urine Bacteria FEW /hpf (None Seen); Urine Blood Negative /uL (Negative); Urine Mucus FEW (None Seen); Urine Specific Gravity 1.026 (1.001-1.035); Urine WBC 1 /hpf (0 - 3)
[2021-04-28 05:00] VITALS: BP 127/78
[2021-04-28 05:47] LABS: Basophils # (auto) 0 10 ^3/uL (0-0.2); Basophils % (auto) 0.4 % (0.0-2.0); Eosinophils # (auto) 0 10 ^3/uL (0-0.8); Eosinophils % (auto) 0.2 % (0.0-7.0); Hematocrit 39.4 % (41.0-53.0); Hemoglobin 13.5 g/dL (13.5-17.5); Lymphocytes # (auto) 2.6 10 ^3/uL (0.4-5.4); Lymphocytes % (auto) 31.4 % (10.0-50.0); Mean Corpuscular Hemoglobin 30.6 pg (28.0-32.0); Mean Corpuscular Hgb Conc. 34.3 g/dL (32.0-36.0); Mean Corpuscular Volume 89.2 fL (80.0-100.0); Monocytes # (auto) 0.6 10 ^3/uL (0-1.3); Monocytes % (auto) 7.1 % (0.0-12.0); Neutrophils % (auto) 60.9 % (37.0-80.0); Nucleated Red Blood Cells % 0.1 %; Red Blood Cells 4.42 10^6/uL (4.5-5.90); Red Cell Distribution Width 14.7 % (11.8-14.3); White Blood Cell 8.2 10^3/uL (4.4-10.8)
[2021-04-28 06:17] LABS: Potassium 3.7 mmol/L (3.5-5.1)
[2021-04-28 06:30] LABS: Albumin 3.2 g/dL (3.4-5.0); BUN/Creatinine Ratio 14.9; Bilirubin, Total 0.9 mg/dL (0.2-1.0); Calcium 8.6 mg/dL (8.5-10.1); Total Protein 6.4 g/dL (6.4-8.2)
[2021-04-28] MEDS: PANTOPRAZOLE 40 MG/10 ML VIAL INJ IV SCH ×2 (09:32→09:37)
[2021-04-28] MEDS: ENOXAPARIN SOD 40 MG/0.4 ML SYRINGE SC SCH (09:38)
[2021-04-28 09:51] VITALS: BP 117/82
[2021-04-28 17:09] VITALS: BP 115/69
[2021-04-28 22:00] VITALS: BP 113/67
[2021-04-28] MEDS: PROMETHAZINE HCL 25 MG/ML 1ML IV PRN (22:56)
[2021-04-29] MEDS: MORPHINE SULFATE 4 MG/ML SYR/VIAL IV PRN ×5 (00:23→20:14)
[2021-04-29 05:22] VITALS: BP 153/62
[2021-04-29 06:14] LABS: Basophils # (auto) 0 10 ^3/uL (0-0.2); Basophils % (auto) 0.3 % (0.0-2.0); Eosinophils # (auto) 0 10 ^3/uL (0-0.8); Eosinophils % (auto) 0.5 % (0.0-7.0); Hematocrit 41.3 % (41.0-53.0); Hemoglobin 14.1 g/dL (13.5-17.5); Lymphocytes # (auto) 1.9 10 ^3/uL (0.4-5.4); Lymphocytes % (auto) 25.9 % (10.0-50.0); Mean Corpuscular Hemoglobin 30.8 pg (28.0-32.0); Mean Corpuscular Hgb Conc. 34.1 g/dL (32.0-36.0); Mean Corpuscular Volume 90.4 fL (80.0-100.0); Monocytes # (auto) 0.5 10 ^3/uL (0-1.3); Monocytes % (auto) 6.1 % (0.0-12.0); Neutrophils % (auto) 67.2 % (37.0-80.0); Nucleated Red Blood Cells % 0.1 %; Red Blood Cells 4.57 10^6/uL (4.5-5.90); Red Cell Distribution Width 14.7 % (11.8-14.3); White Blood Cell 7.5 10^3/uL (4.4-10.8)
[2021-04-29 06:25] LABS: Albumin 3.7 g/dL (3.4-5.0); BUN/Creatinine Ratio 12.3; Calcium 8.8 mg/dL (8.5-10.1); Potassium 3.5 mmol/L (3.5-5.1)
[2021-04-29 06:27] LABS: Bilirubin, Total 1.1 mg/dL (0.2-1.0); Total Protein 6.6 g/dL (6.4-8.2)
[2021-04-29] MEDS: PANTOPRAZOLE 40 MG/10 ML VIAL INJ IV SCH ×2 (07:51→22:00)
[2021-04-29] MEDS: ENOXAPARIN SOD 40 MG/0.4 ML SYRINGE SC SCH (07:51)
[2021-04-29] MEDS: PROMETHAZINE HCL 25 MG/ML 1ML IV PRN ×3 (07:52→16:05)
[2021-04-29 09:00] VITALS: BP 135/70
[2021-04-29] MEDS ORDERED: GASTROGRAFIN 120 ML SOL ONE (10:17)
[2021-04-29 13:00] VITALS: BP 127/73
[2021-04-29 16:44] VITALS: BP 138/73
[2021-04-29] MEDS: ONDANSETRON HCL 4 MG/2 ML VIAL IV PRN (20:14)
[2021-04-29 22:05] VITALS: BP 149/73
[2021-04-30] MEDS: ONDANSETRON HCL 4 MG/2 ML VIAL IV PRN ×5 (01:03→19:35)
[2021-04-30] MEDS: MORPHINE SULFATE 4 MG/ML SYR/VIAL IV PRN ×2 (01:04→06:29)
[2021-04-30 05:00] VITALS: BP 123/72
[2021-04-30] MEDS ORDERED: diphenhdrAMINE HCL 50 MG/1 ML VL IV ONE (07:30)
[2021-04-30 09:00] VITALS: BP 137/69
[2021-04-30] MEDS: PANTOPRAZOLE 40 MG/10 ML VIAL INJ IV SCH ×2 (10:37→22:00)
[2021-04-30] MEDS: ENOXAPARIN SOD 40 MG/0.4 ML SYRINGE SC SCH (10:38)
[2021-04-30] MEDS: HYDROmorphone HCL 2 MG/ML VL IV PRN ×4 (10:38→23:55)
[2021-04-30] MEDS ORDERED: OMNIPAQUE ORAL SOLN 500ml 12mg/ml PO ONE (12:33)
[2021-04-30 16:59] VITALS: BP 133/66
[2021-04-30] MEDS: PROMETHAZINE HCL 25 MG/ML 1ML IV PRN (21:24)
[2021-04-30 22:00] VITALS: BP 131/67
[2021-05-01] MEDS: ONDANSETRON HCL 4 MG/2 ML VIAL IV PRN ×5 (04:16→21:34)
[2021-05-01] MEDS: HYDROmorphone HCL 2 MG/ML VL IV PRN ×2 (04:16→08:22)
[2021-05-01 05:00] VITALS: BP 141/89
[2021-05-01] MEDS: PANTOPRAZOLE 40 MG/10 ML VIAL INJ IV SCH (08:21)
[2021-05-01] MEDS: ENOXAPARIN SOD 40 MG/0.4 ML SYRINGE SC SCH (08:22)
[2021-05-01 09:00] VITALS: BP_SYST 125; BP_SYST 152; BP_DIAS 86; BP_DIAS 87
[2021-05-01] MEDS: HYDROcodone-ACET 10/325MG TAB PO PRN ×3 (12:43→21:33)
[2021-05-01 13:00] VITALS: BP 136/110
[2021-05-01 17:00] VITALS: BP 143/86
[2021-05-01] MEDS: PANTOPRAZOLE 40 MG TAB PO SCH (21:33)
[2021-05-01 22:00] VITALS: BP 121/80
[2021-05-02 05:30] VITALS: BP 112/72
[2021-05-02 07:40] VITALS: BP 128/73
[2021-05-02] MEDS: ONDANSETRON HCL 4 MG/2 ML VIAL IV PRN ×2 (08:01→12:26)
[2021-05-02] MEDS: HYDROcodone-ACET 10/325MG TAB PO PRN ×2 (08:01→12:26)
[2021-05-02 09:03] VITALS: BP 128/73
[2021-05-02] MEDS: ENOXAPARIN SOD 40 MG/0.4 ML SYRINGE SC SCH (10:04)
[2021-05-02] MEDS: PANTOPRAZOLE 40 MG TAB PO SCH (10:04)
[2021-05-02] MEDS ORDERED: PANT40T PO (10:54)
[2021-05-02 14:00] VITALS: BP 113/61
[2021-05-02 14:59] VITALS: BP 113/61
== END 2021-05-02 12:35 | DRG 390 ==
LOC: ER 13:53 → EDBD 13:53 → EEVIPCON 13:53 → OVERFLOW 22:00 → WEST WING 04-28 00:51
PROVIDERS: ADMIT Internal Medicine; ATTEND Internal Medicine
DX: K56.1 Intussusception (principal); K80.20 Calculus of gallbladder without cholecystitis without obstruction; F41.9 Anxiety disorder, unspecified; Z20.822 Contact with and (suspected) exposure to COVID-19; K21.9 Gastro-esophageal reflux disease without esophagitis; Z80.9 Family history of malignant neoplasm, unspecified; Z82.3 Family history of stroke; Z83.3 Family history of diabetes mellitus; Z79.899 Other long term (current) drug therapy
CPT/HCPCS: 36415; 71045; 74018; 74176; 74245; 76705; 80053; 80307; 81001; 82150; 83690; 83735; 84443; 85025; 85610; 85730; 86850; 86900; 86901; 87426; 93005; 96361; 96365; 96367; 96375; C9113; G0378; J0696; J2405; J7060

== ENCOUNTER 2021-10-15 15:42 | Emergency (ER) | payer OTHER ==
[~2021-10-15] VITALS: Ht 180.3 cm; Wt 90.7 kg
[~2021-10-15 15:42] MED LIST changes: +PANT40T PO
[2021-10-15] MEDS ORDERED: HYDROmorphone HCL 2 MG/ML VL IM ONE (16:15)
[2021-10-15] MEDS ORDERED: KETOROLAC TROMETH 30 MG/ML 1ML VIAL IV ONE (16:15)
[2021-10-15] MEDS ORDERED: LORazepam 2MG/ML-1ML VIAL IV ONE (16:15)
[2021-10-15] MEDS ORDERED: OMNIPAQUE ORAL SOLN 500ml 12mg/ml PO ONE (16:23)
[2021-10-15 16:42] LABS: Basophils # (auto) 0 10 ^3/uL (0-0.2); Basophils % (auto) 0.4 % (0.0-2.0); Eosinophils # (auto) 0 10 ^3/uL (0-0.8); Eosinophils % (auto) 0.1 % (0.0-7.0); Hematocrit 42.3 % (41.0-53.0); Hemoglobin 13.9 g/dL (13.5-17.5); Lymphocytes # (auto) 1.7 10 ^3/uL (0.4-5.4); Lymphocytes % (auto) 15.1 % (10.0-50.0); Mean Corpuscular Hemoglobin 29.9 pg (28.0-32.0); Mean Corpuscular Hgb Conc. 32.9 g/dL (32.0-36.0); Mean Corpuscular Volume 90.7 fL (80.0-100.0); Monocytes # (auto) 0.5 10 ^3/uL (0-1.3); Monocytes % (auto) 4.5 % (0.0-12.0); Neutrophils # (auto) 9.1 10 ^3/uL (1.6-8.6); Neutrophils % (auto) 79.9 % (37.0-80.0); Red Blood Cells 4.66 10^6/uL (4.5-5.90); Red Cell Distribution Width 14.9 % (11.8-14.3); White Blood Cell 11.4 10^3/uL (4.4-10.8)
[2021-10-15] MEDS ORDERED: IOHEXOL 300 MG/ML 100ML BOTTLE IJ ONE (18:08)
[2021-10-15 19:21] VITALS: BP 134/71
[2021-10-15 21:31] LABS: Urine Bacteria NONE SEEN /hpf (None Seen); Urine Blood Negative /uL (Negative); Urine WBC 1 /hpf (0 - 3)
[2021-10-15 21:35] LABS: Urine Specific Gravity > 1.050 (1.001-1.035)
[2021-10-15] MEDS ORDERED: POLYETHYLENE GLYCOL 17 GM PWDR PO ONE (22:00)
[2021-10-16 00:47] LABS: BUN/Creatinine Ratio 10.8; Bilirubin, Total 0.7 mg/dL (0.2-1.0); Calcium 9.4 mg/dL (8.5-10.1); Potassium 4.4 mmol/L (3.5-5.1); Total Protein 7.9 g/dL (6.4-8.2)
== END 2021-10-16 01:31 ==
LOC: EEVIPCON 15:42 → EDUNIT# 15:42 → EDBD 15:42 → ER 15:42
DX: K59.00 Constipation, unspecified (principal); K21.9 Gastro-esophageal reflux disease without esophagitis; Z79.899 Other long term (current) drug therapy; Z20.822 Contact with and (suspected) exposure to COVID-19
CPT/HCPCS: 36415; 71045; 74177; 80053; 81001; 83690; 85025; 86850; 86900; 86901; 87426; 96372; 96374; 96375; 99285; J1170; J1885; J2060; Q9967

== ENCOUNTER 2023-07-22 10:06 | Inpatient (IN) | payer OTHER ==
[~2023-07-22] VITALS: Ht 172.7 cm; Wt 86.4 kg
[2023-07-22 10:52] LABS: Urine Bacteria NONE SEEN /hpf (None Seen); Urine Blood Negative /uL (Negative); Urine Clarity Clear (Clear); Urine Color Yellow (Yellow); Urine Mucus FEW (None Seen); Urine Protein, UAD 1+ (Negative); Urine Urobilinogen Normal (Negative); Urine WBC <1 /hpf (0 - 3); Urine pH 8.5 (5.0-8.0)
[2023-07-22 11:08] LABS: Basophils # (auto) 0 10 ^3/uL (0-0.2); Basophils % (auto) 0.1 % (0.0-2.0); Eosinophils # (auto) 0 10 ^3/uL (0-0.8); Hematocrit 43.6 % (41.0-53.0); Hemoglobin 14.5 g/dL (13.5-17.5); Lymphocytes # (auto) 1.3 10 ^3/uL (0.4-5.4); Lymphocytes % (auto) 10.7 % (10.0-50.0); Mean Corpuscular Hemoglobin 30.8 pg (28.0-32.0); Mean Corpuscular Hgb Conc. 33.2 g/dL (32.0-36.0); Mean Corpuscular Volume 92.6 fL (80.0-100.0); Monocytes # (auto) 0.5 10 ^3/uL (0-1.3); Monocytes % (auto) 3.9 % (0.0-12.0); Neutrophils % (auto) 85.3 % (37.0-80.0); Red Blood Cells 4.71 10^6/uL (4.5-5.90); Red Cell Distribution Width 14.2 % (11.8-14.3); White Blood Cell 11.7 10^3/uL (4.4-10.8)
[2023-07-22] MEDS ORDERED: METOCLOPRAMIDE HCL 5MG/ml INJ 2ml VIAL IV ONE (11:15)
[2023-07-22] MEDS ORDERED: PANTOPRAZOLE 40 MG/10 ML VIAL INJ IV ONE (11:15)
[2023-07-22] MEDS ORDERED: HYDROmorphone HCL 2 MG/ML VL/or syr IV ONE (11:15)
[2023-07-22] MEDS ORDERED: SODIUM CHLORIDE 0.9% 1,000 ML IVB ONE (11:15)
[2023-07-22 11:17] LABS: Alanine Aminotransferase 95 U/L (7-40); Albumin 4.9 g/dL (3.2-4.8); Alkaline Phosphatase 74 U/L (46-116); Anion Gap 11 (5-15); Aspartate Aminotransferase 139 U/L (13-40); BUN/Creatinine Ratio 14.3 (10.0-20.0); Blood Urea Nitrogen 16 mg/dL (9-23); Calcium 10.3 mg/dL (8.5-10.1); Carbon Dioxide 24 mmol/L (20-30); Chloride 107 mmol/L (98-107); Glucose 119 mg/dL (74-106); Potassium 4.3 mmol/L (3.5-5.1); Sodium 142 mmol/L (136-145)
[2023-07-22 11:18] LABS: Bilirubin, Total 0.6 mg/dL (0.2-1.0); Total Protein 8.2 g/dL (5.7-8.2)
[2023-07-22] MEDS ORDERED: IOHEXOL 300 MG/ML 100ML BOTTLE IJ ONE (11:19)
[2023-07-22 11:29] VITALS: PULSE 80; RESP 22; O2SAT 98
[2023-07-22 11:32] LABS: Lipase 61 U/L (12-53)
[2023-07-22 11:34] LABS: INR 0.95 (0.9-1.15); Partial Thromboplastin Time < 20.0 SEC (24.5-34.5)
[2023-07-22 11:49] LABS: Amphetamine Screen, Urine Neg (NEGATIVE); Barbiturate Scree,Urine Neg (NEGATIVE); Benzodiazephine Screen, Urine Neg (NEGATIVE); Cannabinoid Screen, Urine Neg (NEGATIVE); Cocaine Screen, Urine Neg (NEGATIVE); Opiate Scree,Urine Neg (NEGATIVE); Phencyclidine Screen, Urine Neg (NEGATIVE)
[2023-07-22 12:16] LABS: Lactic Acid w/Reflex 5.6 mmol/L (0.4-2.0)
[2023-07-22] MEDS ORDERED: COCAINE HCL 4% TOP SOL 4ML TOP ONE (15:45)
[2023-07-22] MEDS ORDERED: NITROGLYCERIN 0.4 MG SL TAB SL PRN (15:45)
[2023-07-22] MEDS ORDERED: MORPHINE SULFATE INJ 2 MG/ml SYRG IV PRN (15:45)
[2023-07-22] MEDS: ONDANSETRON HCL 4 MG/2 ML VIAL IV PRN (15:59)
[2023-07-22] MEDS: HYDROmorphone HCL 2 MG/ML VL/or syr IV PRN ×2 (16:01→22:00)
[2023-07-22] MEDS: D5W/SOD CHL 0.45% 1,000 ML IV SCH (16:21)
[2023-07-22 17:47] VITALS: BP 120/61; PULSE 66; RESP 17; TEMP 98.4; O2SAT 97
[2023-07-22 17:52] VITALS: BP 120/61; PULSE 60; RESP 17; TEMP 98.4; O2SAT 97
[2023-07-22 18:17] VITALS: PULSE 60; RESP 17; O2SAT 97
[2023-07-22] MEDS: PANTOPRAZOLE 40 MG/10 ML VIAL INJ IV SCH (21:47)
[2023-07-22 22:00] VITALS: BP 121/62; PULSE 86; RESP 16; TEMP 98.5; O2SAT 98
[2023-07-23] MEDS: D5W/SOD CHL 0.45% 1,000 ML IV SCH ×2 (01:57→13:13)
[2023-07-23] MEDS: HYDROmorphone HCL 2 MG/ML VL/or syr IV PRN ×5 (04:21→23:39)
[2023-07-23 05:00] VITALS: BP 134/80; PULSE 60; RESP 18; TEMP 98.1; O2SAT 99
[2023-07-23 08:00] VITALS: RESP 17; O2SAT 96
[2023-07-23 09:00] VITALS: BP 113/75; PULSE 53; RESP 17; TEMP 98; O2SAT 96
[2023-07-23] MEDS: PANTOPRAZOLE 40 MG/10 ML VIAL INJ IV SCH ×2 (09:59→22:21)
[2023-07-23] MEDS: cefTRIAXone 1GM/50ML D5W 50 ML IV SCH (09:59)
[2023-07-23 10:22] LABS: Basophils # (auto) 0 10 ^3/uL (0-0.2); Basophils % (auto) 0.4 % (0.0-2.0); Eosinophils # (auto) 0.1 10 ^3/uL (0-0.8); Eosinophils % (auto) 0.8 % (0.0-7.0); Hematocrit 43.6 % (41.0-53.0); Hemoglobin 14.2 g/dL (13.5-17.5); Lymphocytes # (auto) 3.2 10 ^3/uL (0.4-5.4); Lymphocytes % (auto) 33.6 % (10.0-50.0); Mean Corpuscular Hemoglobin 30.7 pg (28.0-32.0); Mean Corpuscular Hgb Conc. 32.7 g/dL (32.0-36.0); Mean Corpuscular Volume 93.9 fL (80.0-100.0); Monocytes # (auto) 0.8 10 ^3/uL (0-1.3); Monocytes % (auto) 8.7 % (0.0-12.0); Neutrophils # (auto) 5.4 10 ^3/uL (1.6-8.6); Neutrophils % (auto) 56.5 % (37.0-80.0); Nucleated Red Blood Cells % 0.2 %; Red Blood Cells 4.64 10^6/uL (4.5-5.90); Red Cell Distribution Width 13.9 % (11.8-14.3); White Blood Cell 9.6 10^3/uL (4.4-10.8)
[2023-07-23 10:40] LABS: Lactic Acid w/Reflex 4.4 mmol/L (0.4-2.0)
[2023-07-23 10:41] LABS: Alanine Aminotransferase 68 U/L (7-40); Albumin 3.8 g/dL (3.2-4.8); Alkaline Phosphatase 59 U/L (46-116); Anion Gap 8 (5-15); Aspartate Aminotransferase 71 U/L (13-40); BUN/Creatinine Ratio 9.1 (10.0-20.0); Bilirubin, Total 0.7 mg/dL (0.2-1.0); Blood Urea Nitrogen 10 mg/dL (9-23); Calcium 8.9 mg/dL (8.5-10.1); Carbon Dioxide 24 mmol/L (20-30); Chloride 109 mmol/L (98-107); Glucose 76 mg/dL (74-106); Potassium 4.1 mmol/L (3.5-5.1); Sodium 141 mmol/L (136-145); Total Protein 6.6 g/dL (5.7-8.2)
[2023-07-23] MEDS ORDERED: metroNIDAZOLE 500MG/100ML 100 ML IV ONE (12:15)
[2023-07-23 13:20] VITALS: BP 130/72; PULSE 61; RESP 16; TEMP 98.4; O2SAT 98
[2023-07-23 16:59] VITALS: BP 121/62; PULSE 58; RESP 18; TEMP 98.1; O2SAT 100
[2023-07-23 22:00] VITALS: BP 130/69; PULSE 64; RESP 19; TEMP 98.3; O2SAT 100
[2023-07-23] MEDS: ONDANSETRON HCL 4 MG/2 ML VIAL IV PRN (23:39)
[2023-07-24] MEDS: D5W/SOD CHL 0.45% 1,000 ML IV SCH ×3 (01:47→17:45)
[2023-07-24 05:00] VITALS: BP 123/68; PULSE 78; RESP 19; TEMP 97.9; O2SAT 96
[2023-07-24] MEDS: HYDROmorphone HCL 2 MG/ML VL/or syr IV PRN ×5 (05:13→21:33)
[2023-07-24 08:30] VITALS: BP 118/62; PULSE 60; RESP 19; TEMP 97.7; O2SAT 100
[2023-07-24] MEDS: PANTOPRAZOLE 40 MG/10 ML VIAL INJ IV SCH ×2 (09:08→21:33)
[2023-07-24] MEDS: cefTRIAXone 1GM/50ML D5W 50 ML IV SCH (09:15)
[2023-07-24] MEDS: ONDANSETRON HCL 4 MG/2 ML VIAL IV PRN (12:28)
[2023-07-24 12:30] VITALS: BP 128/68; PULSE 55; RESP 18; TEMP 98.1; O2SAT 96
[2023-07-24] MEDS: metroNIDAZOLE 500MG/100ML 100 ML IV SCH ×2 (14:43→21:33)
[2023-07-24] MEDS ORDERED: GASTROGRAFIN 30 ML SOL ONE (16:16)
[2023-07-24 16:34] VITALS: BP 116/66; PULSE 53; RESP 18; TEMP 98.6; O2SAT 98
[2023-07-24 20:00] VITALS: PULSE 66; RESP 20
[2023-07-24 22:00] VITALS: BP 129/68; PULSE 66; RESP 18; TEMP 98.7; O2SAT 96
[2023-07-25] VITALS (7 sets, daily range): BP systolic 111–147; BP diastolic 61–73; PULSE 48–64; RESP 17–20; TEMP 98.1–98.5; O2SAT 94–98
[2023-07-25] MEDS: HYDROmorphone HCL 2 MG/ML VL/or syr IV PRN ×6 (02:38→21:11)
[2023-07-25] MEDS: D5W/SOD CHL 0.45% 1,000 ML IV SCH ×3 (04:11→23:45)
[2023-07-25] MEDS: metroNIDAZOLE 500MG/100ML 100 ML IV SCH ×3 (06:01→20:55)
[2023-07-25] MEDS: cefTRIAXone 1GM/50ML D5W 50 ML IV SCH (09:29)
[2023-07-25] MEDS: PANTOPRAZOLE 40 MG/10 ML VIAL INJ IV SCH ×2 (09:29→20:55)
[2023-07-26] VITALS (7 sets, daily range): BP systolic 117–150; BP diastolic 59–96; PULSE 50–65; RESP 18–20; TEMP 98.1–99; O2SAT 94–99
[2023-07-26] MEDS: HYDROmorphone HCL 2 MG/ML VL/or syr IV PRN ×5 (02:28→21:19)
[2023-07-26] MEDS: metroNIDAZOLE 500MG/100ML 100 ML IV SCH ×3 (05:50→21:18)
[2023-07-26] MEDS: PANTOPRAZOLE 40 MG/10 ML VIAL INJ IV SCH ×2 (09:21→21:18)
[2023-07-26] MEDS: cefTRIAXone 1GM/50ML D5W 50 ML IV SCH (09:21)
[2023-07-26] MEDS: D5W/SOD CHL 0.45% 1,000 ML IV SCH ×2 (09:45→16:28)
[2023-07-26] MEDS ORDERED: MORPHINE SULFATE 4 MG/ML SYR/VIAL IV PRN (15:30)
[2023-07-27] MEDS: HYDROmorphone HCL 2 MG/ML VL/or syr IV PRN ×6 (04:27→14:25)
[2023-07-27 05:00] VITALS: BP 137/71; PULSE 52; RESP 20; TEMP 98.7; O2SAT 96
[2023-07-27] MEDS: D5W/SOD CHL 0.45% 1,000 ML IV SCH ×2 (05:49→14:29)
[2023-07-27] MEDS: metroNIDAZOLE 500MG/100ML 100 ML IV SCH ×3 (06:34→22:13)
[2023-07-27 07:30] VITALS: RESP 20; O2SAT 94
[2023-07-27 08:22] LABS: Basophils # (auto) 0 10 ^3/uL (0-0.2); Basophils % (auto) 0.4 % (0.0-2.0); Eosinophils # (auto) 0.1 10 ^3/uL (0-0.8); Eosinophils % (auto) 1.8 % (0.0-7.0); Hematocrit 44.2 % (41.0-53.0); Hemoglobin 14.8 g/dL (13.5-17.5); Lymphocytes # (auto) 1.7 10 ^3/uL (0.4-5.4); Lymphocytes % (auto) 25.1 % (10.0-50.0); Mean Corpuscular Hgb Conc. 33.4 g/dL (32.0-36.0); Mean Corpuscular Volume 92.9 fL (80.0-100.0); Monocytes # (auto) 0.6 10 ^3/uL (0-1.3); Monocytes % (auto) 8.3 % (0.0-12.0); Neutrophils # (auto) 4.4 10 ^3/uL (1.6-8.6); Neutrophils % (auto) 64.4 % (37.0-80.0); Nucleated Red Blood Cells % 0.2 %; Red Blood Cells 4.75 10^6/uL (4.5-5.90); White Blood Cell 6.9 10^3/uL (4.4-10.8)
[2023-07-27 08:28] VITALS: BP 123/79; PULSE 52; RESP 20; TEMP 98.6; O2SAT 98
[2023-07-27 08:34] LABS: INR 1.12 (0.9-1.15); Partial Thromboplastin Time 28.6 SEC (24.5-34.5); Prothrombin Time 11.7 sec (9.3-11.8)
[2023-07-27 08:47] LABS: Alanine Aminotransferase 54 U/L (7-40); Albumin 4.2 g/dL (3.2-4.8); Alkaline Phosphatase 65 U/L (46-116); Anion Gap 6 (5-15); Aspartate Aminotransferase 42 U/L (13-40); BUN/Creatinine Ratio 4.9 (10.0-20.0); Blood Urea Nitrogen 6 mg/dL (9-23); Calcium 9.5 mg/dL (8.5-10.1); Carbon Dioxide 26 mmol/L (20-30); Chloride 104 mmol/L (98-107); Glucose 100 mg/dL (74-106); Sodium 136 mmol/L (136-145)
[2023-07-27 08:48] LABS: Bilirubin, Total 0.8 mg/dL (0.2-1.0); Total Protein 7.3 g/dL (5.7-8.2)
[2023-07-27] MEDS: ENOXAPARIN SOD 40 MG/0.4 ML SYRINGE SC SCH (09:10)
[2023-07-27] MEDS: cefTRIAXone 1GM/50ML D5W 50 ML IV SCH (10:00)
[2023-07-27] MEDS ORDERED: fentaNYL CITRATE 100 MCG/2 ML VL ONE (10:29)
[2023-07-27] MEDS ORDERED: HYDROmorphone HCL 2 MG/ML VL/or syr ONE (10:29)
[2023-07-27] MEDS ORDERED: MIDAZOLAM HCL 2MG/2ML 2ml VIAL (1mg/ml) ONE (10:30)
[2023-07-27] MEDS ORDERED: ceFAZolin 1GM/50ML 100 ML IV ONE (10:32)
[2023-07-27] MEDS ORDERED: SUCCINYLCHOLINE CHLORIDE 20 MG/ML 10ML VIAL IV ONE (10:44)
[2023-07-27] MEDS ORDERED: MIDAZOLAM HCL 2MG/2ML 2ml VIAL (1mg/ml) IV PRN (11:00)
[2023-07-27] MEDS ORDERED: ePHEDrine SULFATE 50 MG/ML AMP IV PRN (11:00)
[2023-07-27] MEDS ORDERED: fentaNYL CITRATE 100 MCG/2 ML VL IV PRN (11:00)
[2023-07-27] MEDS ORDERED: LABETALOL HCL 5 MG/ML 4ML SYRINGE IV PRN (11:00)
[2023-07-27] MEDS ORDERED: ONDANSETRON HCL 4 MG/2 ML VIAL IV PRN (11:00)
[2023-07-27] MEDS ORDERED: SUGAMMADEX 200mg/2ml Vial (100MG/ML) IV ONE (11:22)
[2023-07-27] MEDS ORDERED: POVIDONE IODINE 10 % TOPICAL OINT 30GM TOP ONE (11:23)
[2023-07-27] MEDS ORDERED: KETOROLAC TROMETH 60MG/2ML VIAL IV ONE (11:30)
[2023-07-27] MEDS: PANTOPRAZOLE 40 MG/10 ML VIAL INJ IV SCH ×2 (12:56→22:13)
[2023-07-27] MEDS ORDERED: HYDROmorphone HCL 2 MG/ML VL/or syr IV PRN ×2 (15:30)
[2023-07-27] MEDS ORDERED: ROCURONIUM 10MG/ML 10ML VIAL IV ONE (16:25)
[2023-07-27] MEDS ORDERED: ONDANSETRON HCL 4 MG/2 ML VIAL IV ONE (16:25)
[2023-07-27] MEDS ORDERED: PROPOFOL 10 MG/ML 20 ML IV ONE (16:25)
[2023-07-27] MEDS ORDERED: DexAMETHasone SOD PHOS 10MG/1ML VIAL INJ IV ONE (16:25)
[2023-07-27 17:26] VITALS: BP 142/83; PULSE 62; RESP 17; TEMP 98.3; O2SAT 96
[2023-07-27] MEDS: HYDROcodone-ACET 10/325MG TAB PO PRN (18:09)
[2023-07-27 20:00] VITALS: PULSE 52; RESP 20; O2SAT 98
[2023-07-27] MEDS: ONDANSETRON HCL 4 MG/2 ML VIAL IV PRN (20:11)
[2023-07-27] MEDS ORDERED: HYDROmorphone HCL 2 MG/ML VL/or syr IV ONE (20:45)
[2023-07-27 22:00] VITALS: BP 135/87; PULSE 59; RESP 16; TEMP 97.7; O2SAT 96
[2023-07-28] MEDS: HYDROmorphone HCL 2 MG/ML VL/or syr IV PRN ×7 (00:17→23:45)
[2023-07-28] MEDS: D5W/SOD CHL 0.45% 1,000 ML IV SCH ×3 (01:45→23:44)
[2023-07-28 05:00] VITALS: BP 143/75; PULSE 59; RESP 15; TEMP 99.1; O2SAT 94
[2023-07-28 05:20] LABS: Basophils # (auto) 0 10 ^3/uL (0-0.2); Basophils % (auto) 0.1 % (0.0-2.0); Eosinophils # (auto) 0 10 ^3/uL (0-0.8); Hematocrit 42.4 % (41.0-53.0); Hemoglobin 14.2 g/dL (13.5-17.5); Lymphocytes # (auto) 0.9 10 ^3/uL (0.4-5.4); Lymphocytes % (auto) 6.9 % (10.0-50.0); Mean Corpuscular Hemoglobin 30.7 pg (28.0-32.0); Mean Corpuscular Hgb Conc. 33.5 g/dL (32.0-36.0); Mean Corpuscular Volume 91.6 fL (80.0-100.0); Monocytes # (auto) 1.1 10 ^3/uL (0-1.3); Monocytes % (auto) 8.6 % (0.0-12.0); Neutrophils % (auto) 84.4 % (37.0-80.0); Red Blood Cells 4.63 10^6/uL (4.5-5.90)
[2023-07-28 05:36] LABS: Alanine Aminotransferase 52 U/L (7-40); Albumin 4.2 g/dL (3.2-4.8); Alkaline Phosphatase 67 U/L (46-116); Anion Gap 8 (5-15); Aspartate Aminotransferase 33 U/L (13-40); Bilirubin, Total 0.8 mg/dL (0.2-1.0); Blood Urea Nitrogen 7 mg/dL (9-23); Calcium 9.5 mg/dL (8.7-10.4); Carbon Dioxide 24 mmol/L (20-30); Chloride 104 mmol/L (98-107); Glucose 123 mg/dL (74-106); Sodium 136 mmol/L (136-145); Total Protein 7.2 g/dL (5.7-8.2)
[2023-07-28] MEDS: metroNIDAZOLE 500MG/100ML 100 ML IV SCH ×3 (05:50→20:29)
[2023-07-28] MEDS: ENOXAPARIN SOD 40 MG/0.4 ML SYRINGE SC SCH (08:29)
[2023-07-28] MEDS: cefTRIAXone 1GM/50ML D5W 50 ML IV SCH (08:29)
[2023-07-28] MEDS: ONDANSETRON HCL 4 MG/2 ML VIAL IV PRN ×3 (08:29→20:29)
[2023-07-28] MEDS: PANTOPRAZOLE 40 MG/10 ML VIAL INJ IV SCH ×2 (08:29→20:28)
[2023-07-28 08:30] VITALS: RESP 20; O2SAT 98
[2023-07-28] MEDS: HYDROcodone-ACET 10/325MG TAB PO PRN ×2 (09:50→14:21)
[2023-07-28 12:54] VITALS: BP 141/75; PULSE 65; RESP 14; TEMP 98.7; O2SAT 98
[2023-07-28 17:00] VITALS: BP 110/58; PULSE 64; RESP 14; TEMP 98.6; O2SAT 99
[2023-07-28 20:20] VITALS: BP 131/74; PULSE 60; RESP 14; RESP 20; TEMP 98.5; O2SAT 96
[2023-07-28 22:00] VITALS: BP 131/74; PULSE 60; RESP 14; TEMP 98.5; O2SAT 96
[2023-07-29] VITALS (7 sets, daily range): BP systolic 117–131; BP diastolic 71–83; PULSE 50–90; RESP 14–20; TEMP 98–99.1; O2SAT 95–98
[2023-07-29] MEDS: ONDANSETRON HCL 4 MG/2 ML VIAL IV PRN ×3 (03:14→21:36)
[2023-07-29] MEDS: HYDROmorphone HCL 2 MG/ML VL/or syr IV PRN ×6 (03:15→21:37)
[2023-07-29] MEDS: metroNIDAZOLE 500MG/100ML 100 ML IV SCH ×3 (06:24→21:36)
[2023-07-29] MEDS: D5W/SOD CHL 0.45% 1,000 ML IV SCH ×2 (07:45→18:15)
[2023-07-29] MEDS: PANTOPRAZOLE 40 MG/10 ML VIAL INJ IV SCH ×2 (10:39→21:36)
[2023-07-29] MEDS: cefTRIAXone 1GM/50ML D5W 50 ML IV SCH (10:39)
[2023-07-29] MEDS: ENOXAPARIN SOD 40 MG/0.4 ML SYRINGE SC SCH (10:39)
[2023-07-30] VITALS (7 sets, daily range): BP systolic 128–157; BP diastolic 80–94; PULSE 51–75; RESP 14–18; TEMP 98.5–100.5; O2SAT 93–99
[2023-07-30] MEDS: HYDROmorphone HCL 2 MG/ML VL/or syr IV PRN ×6 (00:52→21:43)
[2023-07-30] MEDS: ONDANSETRON HCL 4 MG/2 ML VIAL IV PRN ×4 (04:38→21:41)
[2023-07-30] MEDS: metroNIDAZOLE 500MG/100ML 100 ML IV SCH ×3 (06:04→21:41)
[2023-07-30] MEDS: D5W/SOD CHL 0.45% 1,000 ML IV SCH ×2 (06:05→13:35)
[2023-07-30] MEDS: PANTOPRAZOLE 40 MG/10 ML VIAL INJ IV SCH ×2 (09:39→21:41)
[2023-07-30] MEDS: ENOXAPARIN SOD 40 MG/0.4 ML SYRINGE SC SCH (09:40)
[2023-07-30] MEDS: cefTRIAXone 1GM/50ML D5W 50 ML IV SCH (09:48)
[2023-07-31] MEDS: HYDROmorphone HCL 2 MG/ML VL/or syr IV PRN ×6 (01:15→22:45)
[2023-07-31] MEDS: D5W/SOD CHL 0.45% 1,000 ML IV SCH ×3 (01:18→19:45)
[2023-07-31 05:00] VITALS: BP 149/100; PULSE 60; RESP 16; TEMP 99.4; O2SAT 98
[2023-07-31] MEDS: ONDANSETRON HCL 4 MG/2 ML VIAL IV PRN ×5 (05:16→22:48)
[2023-07-31] MEDS: metroNIDAZOLE 500MG/100ML 100 ML IV SCH ×3 (05:17→22:45)
[2023-07-31 08:00] VITALS: PULSE 63; RESP 20; O2SAT 95
[2023-07-31 08:45] VITALS: BP 151/86; PULSE 63; RESP 20; TEMP 98.4; O2SAT 99
[2023-07-31] MEDS: PANTOPRAZOLE 40 MG/10 ML VIAL INJ IV SCH ×2 (09:20→22:40)
[2023-07-31] MEDS: cefTRIAXone 1GM/50ML D5W 50 ML IV SCH (09:22)
[2023-07-31] MEDS: ENOXAPARIN SOD 40 MG/0.4 ML SYRINGE SC SCH (09:22)
[2023-07-31 12:50] VITALS: BP 134/92; PULSE 97; RESP 21; TEMP 98.8; O2SAT 97
[2023-07-31 16:40] VITALS: BP 144/88; PULSE 64; RESP 20; TEMP 98.5; O2SAT 95
[2023-07-31 22:00] VITALS: BP 131/87; PULSE 57; RESP 19; TEMP 99.1; O2SAT 94
[2023-08-01] MEDS: D5W/SOD CHL 0.45% 1,000 ML IV SCH ×2 (00:51→18:22)
[2023-08-01] MEDS: ONDANSETRON HCL 4 MG/2 ML VIAL IV PRN ×2 (03:21→10:18)
[2023-08-01] MEDS: HYDROmorphone HCL 2 MG/ML VL/or syr IV PRN ×2 (03:21→10:17)
[2023-08-01 05:00] VITALS: BP 134/64; PULSE 54; RESP 19; TEMP 98.7; O2SAT 97
[2023-08-01] MEDS: metroNIDAZOLE 500MG/100ML 100 ML IV SCH ×3 (06:00→22:31)
[2023-08-01 08:00] VITALS: PULSE 60; PULSE 64; RESP 16; RESP 18; O2SAT 95
[2023-08-01] MEDS ORDERED: GASTROGRAFIN 120 ML SOL ONE (08:32)
[2023-08-01 08:59] VITALS: BP 147/77; PULSE 60; RESP 19; TEMP 98.6; O2SAT 95
[2023-08-01] MEDS: PANTOPRAZOLE 40 MG/10 ML VIAL INJ IV SCH ×2 (10:14→22:31)
[2023-08-01] MEDS: cefTRIAXone 1GM/50ML D5W 50 ML IV SCH (10:14)
[2023-08-01] MEDS: ENOXAPARIN SOD 40 MG/0.4 ML SYRINGE SC SCH (10:16)
[2023-08-01] MEDS: HYDROcodone-ACET 10/325MG TAB PO PRN ×2 (14:16→22:31)
[2023-08-01 16:40] VITALS: BP 140/88; PULSE 66; RESP 19; TEMP 98.5; O2SAT 98
[2023-08-01 22:00] VITALS: BP 137/83; PULSE 68; RESP 16; TEMP 99.4; O2SAT 91
[2023-08-02] VITALS (7 sets, daily range): BP systolic 113–147; BP diastolic 71–90; PULSE 59–80; RESP 16–19; TEMP 97.7–98.2; O2SAT 94–99
[2023-08-02] MEDS: D5W/SOD CHL 0.45% 1,000 ML IV SCH ×3 (01:45→21:46)
[2023-08-02] MEDS: metroNIDAZOLE 500MG/100ML 100 ML IV SCH ×3 (05:42→21:49)
[2023-08-02] MEDS: HYDROcodone-ACET 10/325MG TAB PO PRN ×3 (05:42→21:49)
[2023-08-02] MEDS ORDERED: HYDROmorphone HCL 2 MG/ML VL/or syr IV PRN (09:30)
[2023-08-02] MEDS: PANTOPRAZOLE 40 MG/10 ML VIAL INJ IV SCH ×2 (10:03→21:49)
[2023-08-02] MEDS: ENOXAPARIN SOD 40 MG/0.4 ML SYRINGE SC SCH (10:03)
[2023-08-02] MEDS: cefTRIAXone 1GM/50ML D5W 50 ML IV SCH (10:03)
[2023-08-02] MEDS ORDERED: KETOROLAC TROMETH 60MG/2ML VIAL IV PRN (11:00)
[2023-08-02] MEDS: METOCLOPRAMIDE HCL 5MG/ml INJ 2ml VIAL IV SCH ×2 (13:48→18:06)
[2023-08-02] MEDS: NEOSTIGMINE 1 MG/ML INJ (10mg/10ML VIAL) IM SCH ×4 (14:00→21:57)
[2023-08-03] VITALS (7 sets, daily range): BP systolic 128–155; BP diastolic 75–86; PULSE 55–75; RESP 17–18; TEMP 37.4; O2SAT 96–100
[2023-08-03] MEDS: METOCLOPRAMIDE HCL 5MG/ml INJ 2ml VIAL IV SCH ×5 (00:09→23:57)
[2023-08-03] MEDS: NEOSTIGMINE 1 MG/ML INJ (10mg/10ML VIAL) IM SCH ×5 (02:00→17:18)
[2023-08-03] MEDS: HYDROcodone-ACET 10/325MG TAB PO PRN ×4 (04:13→22:13)
[2023-08-03] MEDS: metroNIDAZOLE 500MG/100ML 100 ML IV SCH ×3 (05:52→22:04)
[2023-08-03] MEDS: ENOXAPARIN SOD 40 MG/0.4 ML SYRINGE SC SCH (10:51)
[2023-08-03] MEDS: PANTOPRAZOLE 40 MG/10 ML VIAL INJ IV SCH ×2 (10:51→22:04)
[2023-08-03] MEDS: cefTRIAXone 1GM/50ML D5W 50 ML IV SCH (10:52)
[2023-08-03] MEDS: D5W/SOD CHL 0.45% 1,000 ML IV SCH ×2 (10:57→17:45)
[2023-08-04] VITALS (7 sets, daily range): BP systolic 127–149; BP diastolic 70–96; PULSE 54–75; RESP 16–20; TEMP 37; O2SAT 96–98
[2023-08-04] MEDS: HYDROcodone-ACET 10/325MG TAB PO PRN ×4 (05:08→22:36)
[2023-08-04] MEDS: D5W/SOD CHL 0.45% 1,000 ML IV SCH ×2 (05:08→13:16)
[2023-08-04] MEDS: METOCLOPRAMIDE HCL 5MG/ml INJ 2ml VIAL IV SCH ×3 (05:10→13:40)
[2023-08-04] MEDS: metroNIDAZOLE 500MG/100ML 100 ML IV SCH ×3 (05:10→22:37)
[2023-08-04] MEDS: cefTRIAXone 1GM/50ML D5W 50 ML IV SCH (09:27)
[2023-08-04] MEDS: PANTOPRAZOLE 40 MG/10 ML VIAL INJ IV SCH ×2 (09:28→22:00)
[2023-08-04] MEDS: ENOXAPARIN SOD 40 MG/0.4 ML SYRINGE SC SCH (09:30)
[2023-08-05] VITALS (7 sets, daily range): BP systolic 124–173; BP diastolic 71–98; PULSE 51–95; RESP 16–20; TEMP 98.4–99.5; O2SAT 95–98
[2023-08-05] MEDS: HYDROcodone-ACET 10/325MG TAB PO PRN ×4 (04:14→22:04)
[2023-08-05] MEDS: METOCLOPRAMIDE HCL 5MG/ml INJ 2ml VIAL IV SCH ×4 (05:35→17:49)
[2023-08-05] MEDS: metroNIDAZOLE 500MG/100ML 100 ML IV SCH ×3 (05:35→22:04)
[2023-08-05 06:15] LABS: Alanine Aminotransferase 46 U/L (7-40); Alkaline Phosphatase 52 U/L (46-116); Anion Gap 6 (5-15); Aspartate Aminotransferase 39 U/L (13-40); BUN/Creatinine Ratio 5.4 (10.0-20.0); Blood Urea Nitrogen 6 mg/dL (9-23); Carbon Dioxide 26 mmol/L (20-30); Chloride 107 mmol/L (98-107); Glucose 94 mg/dL (74-106); Potassium 3.3 mmol/L (3.5-5.1); Sodium 139 mmol/L (136-145)
[2023-08-05 06:16] LABS: Albumin 3.6 g/dL (3.2-4.8); Bilirubin, Total 0.6 mg/dL (0.2-1.0); Total Protein 6.1 g/dL (5.7-8.2)
[2023-08-05] MEDS: cefTRIAXone 1GM/50ML D5W 50 ML IV SCH (08:46)
[2023-08-05] MEDS: PANTOPRAZOLE 40 MG/10 ML VIAL INJ IV SCH ×2 (08:46→22:03)
[2023-08-05] MEDS: ENOXAPARIN SOD 40 MG/0.4 ML SYRINGE SC SCH (08:46)
[2023-08-05] MEDS ORDERED: POTASSIUM CHL 20 Meq TABLET PO ONE (10:45)
[2023-08-05] MEDS: ONDANSETRON HCL 4 MG/2 ML VIAL IV PRN (13:06)
[2023-08-06 04:57] VITALS: BP 159/90; PULSE 60; RESP 16; TEMP 98; O2SAT 98
[2023-08-06] MEDS: METOCLOPRAMIDE HCL 5MG/ml INJ 2ml VIAL IV SCH ×5 (06:00→23:52)
[2023-08-06] MEDS: HYDROcodone-ACET 10/325MG TAB PO PRN ×4 (06:11→22:19)
[2023-08-06] MEDS: metroNIDAZOLE 500MG/100ML 100 ML IV SCH ×3 (06:26→22:18)
[2023-08-06 08:00] LABS: Chloride 109 mmol/L (98-107); Potassium 3.9 mmol/L (3.5-5.1); Sodium 141 mmol/L (136-145)
[2023-08-06 08:01] LABS: Anion Gap 6 (5-15); Carbon Dioxide 26 mmol/L (20-30)
[2023-08-06 08:06] LABS: BUN/Creatinine Ratio 7.4 (10.0-20.0); Blood Urea Nitrogen 8 mg/dL (9-23); Glucose 97 mg/dL (74-106)
[2023-08-06 09:00] VITALS: BP 150/87; PULSE 62; RESP 20; TEMP 98.2; O2SAT 95
[2023-08-06] MEDS: PANTOPRAZOLE 40 MG/10 ML VIAL INJ IV SCH ×2 (09:39→22:18)
[2023-08-06] MEDS: ENOXAPARIN SOD 40 MG/0.4 ML SYRINGE SC SCH (09:39)
[2023-08-06] MEDS: cefTRIAXone 1GM/50ML D5W 50 ML IV SCH (09:39)
[2023-08-06 13:00] VITALS: BP 164/75; PULSE 67; RESP 17; TEMP 98.3; O2SAT 99
[2023-08-06 17:00] VITALS: BP 152/82; PULSE 69; RESP 17; TEMP 98.3; O2SAT 98
[2023-08-06 20:00] VITALS: PULSE 66; RESP 17; O2SAT 98
[2023-08-06 22:00] VITALS: BP 145/83; PULSE 56; RESP 19; TEMP 98.4; O2SAT 98
[2023-08-07 05:00] VITALS: BP 133/69; PULSE 63; RESP 16; TEMP 98.8; O2SAT 94
[2023-08-07] MEDS: METOCLOPRAMIDE HCL 5MG/ml INJ 2ml VIAL IV SCH ×4 (05:59→23:52)
[2023-08-07] MEDS: metroNIDAZOLE 500MG/100ML 100 ML IV SCH ×3 (05:59→22:08)
[2023-08-07] MEDS: HYDROcodone-ACET 10/325MG TAB PO PRN ×5 (06:13→22:38)
[2023-08-07 08:50] VITALS: BP 161/85; PULSE 62; RESP 18; TEMP 98.4; O2SAT 100
[2023-08-07] MEDS: PANTOPRAZOLE 40 MG/10 ML VIAL INJ IV SCH ×2 (09:39→22:08)
[2023-08-07] MEDS: ENOXAPARIN SOD 40 MG/0.4 ML SYRINGE SC SCH (09:39)
[2023-08-07] MEDS: cefTRIAXone 1GM/50ML D5W 50 ML IV SCH (09:39)
[2023-08-07 13:00] VITALS: BP 161/83; PULSE 105; RESP 16; TEMP 98.4; O2SAT 98
[2023-08-07 17:00] VITALS: BP 177/110; PULSE 87; RESP 18; TEMP 99; O2SAT 98
[2023-08-07 20:00] VITALS: PULSE 65; RESP 17; O2SAT 98
[2023-08-07 22:00] VITALS: BP 155/86; PULSE 86; RESP 17; TEMP 98.5; O2SAT 98
[2023-08-08 05:00] VITALS: BP 165/99; PULSE 60; RESP 18; TEMP 98.3; O2SAT 93
[2023-08-08] MEDS: metroNIDAZOLE 500MG/100ML 100 ML IV SCH (05:45)
[2023-08-08] MEDS: METOCLOPRAMIDE HCL 5MG/ml INJ 2ml VIAL IV SCH ×4 (05:45→22:38)
[2023-08-08] MEDS: HYDROcodone-ACET 10/325MG TAB PO PRN ×4 (06:07→22:38)
[2023-08-08 09:00] VITALS: BP 159/92; PULSE 88; RESP 19; TEMP 97.8; O2SAT 99
[2023-08-08] MEDS: cefTRIAXone 1GM/50ML D5W 50 ML IV SCH (09:16)
[2023-08-08] MEDS: ENOXAPARIN SOD 40 MG/0.4 ML SYRINGE SC SCH (09:17)
[2023-08-08] MEDS: PANTOPRAZOLE 40 MG/10 ML VIAL INJ IV SCH ×2 (09:17→21:07)
[2023-08-08 13:00] VITALS: BP 154/80; PULSE 98; RESP 17; TEMP 97.9; O2SAT 100
[2023-08-08 16:57] VITALS: BP 153/83; PULSE 78; RESP 17; TEMP 98.6; O2SAT 99
[2023-08-08] MEDS: DOCUSATE SOD 100 MG CAP PO SCH (21:07)
[2023-08-08 22:00] VITALS: BP 148/90; PULSE 102; RESP 17; TEMP 98; O2SAT 98
[2023-08-09 05:00] VITALS: BP 128/75; PULSE 56; RESP 16; TEMP 97.6; O2SAT 96
[2023-08-09] MEDS: METOCLOPRAMIDE HCL 5MG/ml INJ 2ml VIAL IV SCH ×3 (06:00→11:25)
[2023-08-09] MEDS: HYDROcodone-ACET 10/325MG TAB PO PRN ×2 (08:06→12:14)
[2023-08-09 09:00] VITALS: BP 146/86; PULSE 79; RESP 17; TEMP 98.5; O2SAT 98
[2023-08-09] MEDS: ENOXAPARIN SOD 40 MG/0.4 ML SYRINGE SC SCH (09:52)
[2023-08-09] MEDS: DOCUSATE SOD 100 MG CAP PO SCH (09:53)
[2023-08-09] MEDS ORDERED: amLODIPine BESYLATE 5 MG TAB PO SCH (10:00)
[2023-08-09] MEDS ORDERED: DOCU-265 PO (10:40)
[2023-08-09] MEDS ORDERED: AML5T PO (10:40)
[2023-08-09] MEDS: PANTOPRAZOLE 40 MG/10 ML VIAL INJ IV SCH (11:25)
[2023-08-09 11:50] VITALS: BP 146/86; TEMP 36.9
[2023-08-09 13:00] VITALS: BP 133/85; PULSE 85; RESP 18; TEMP 99.7; O2SAT 94
== END 2023-08-09 14:10 | DRG 398 ==
LOC: EEVIPCON 10:06 → ER 10:06 → OVERFLOW 15:38 → WEST WING 17:43
PROVIDERS: ADMIT Specialist; ATTEND Internal Medicine
PROC: 0DTJ0ZZ Resection of Appendix, Open Approach (ICD-10-PCS; principal; 2023-07-27 10:41)
DX: K36 Other appendicitis (principal); E87.20 Acidosis, unspecified; K56.609 Unspecified intestinal obstruction, unspecified as to partial versus complete obstruction; K56.1 Intussusception; I10 Essential (primary) hypertension; Z82.3 Family history of stroke; Z86.73 Personal history of transient ischemic attack (TIA), and cerebral infarction without residual deficits
CPT/HCPCS: 36415; 71045; 74176; 74177; 74250; 76705; 80048; 80053; 80307; 80320; 81001; 83605; 83690; 83735; 84484; 85025; 85610; 85730; 86850; 86900; 86901; 87493; 96361; 96374; 96375; 99291; C9113; G0378; J0330; J0690; J0696; J1100; J1885; J2250; J2405; J2704; J3490